=== PATIENT | male | born 1955 | race Caucasian/White ===

== ENCOUNTER 2022-04-24 10:08 | Inpatient (IN) ==
--- NOTE | 2022-04-04 09:36 | PAT Medication Instructions ---
Medication Instructions Date of Service April 04, 2022 Home Medications aspirin 81 mg tablet,delayed release 81 mg PO QAM atorvastatin 80 mg tablet 80 mg PO QPM cholecalciferol (vitamin D3) 125 mcg (5,000 unit) tablet (Vitamin D3) 125 mcg PO QAM clopidogrel 75 mg tablet 75 mg PO QAM dapagliflozin 10 mg tablet (Farxiga) 10 mg PO QAM dulaglutide 1.5 mg/0.5 mL subcutaneous pen injector (Trulicity) 1.5 mg subcut WK duloxetine 60 mg capsule,delayed release 60 mg PO QAM insulin lispro 100 unit/mL subcutaneous pen (Humalog KwikPen (U-100) Insulin) 1 sliding scale dose subcut USEASDIRECTD lactobacillus combination no.4 3 billion cell capsule (Probiotic) 3,000 mmu cells PO QAM metformin 500 mg tablet 500 mg PO BID metoprolol succinate 25 mg tablet,extended release 24 hr 25 mg PO BID multivitamin 1 cap PO QPM omeprazole 20 mg capsule,delayed release 20 mg PO QAM oxycodone-acetaminophen 10 mg-325 mg tablet 1 tab PO Q4H PRN Pain pregabalin 150 mg capsule (Lyrica) 150 mg PO QAM pregabalin 150 mg capsule (Lyrica) 300 mg PO HS sacubitril 49 mg-valsartan 51 mg tablet (Entresto) 1 tab PO BID spironolactone 25 mg tablet 25 mg PO QAM trazodone 100 mg tablet 100 mg PO HS Continue as directed dulaglutide 1.5 mg/0.5 mL subcutaneous pen injector (Trulicity) 1.5 mg subcut WK ASK your prescriber and surgeon aspirin 81 mg tablet,delayed release 81 mg PO QAM clopidogrel 75 mg tablet 75 mg PO QAM STOP 3 days before surgery dapagliflozin 10 mg tablet (Farxiga) 10 mg PO QAM DO NOT take the morning of surgery cholecalciferol (vitamin D3) 125 mcg (5,000 unit) tablet (Vitamin D3) 125 mcg PO QAM insulin lispro 100 unit/mL subcutaneous pen (Humalog KwikPen (U-100) Insulin) 1 sliding scale dose subcut USEASDIRECTD lactobacillus combination no.4 3 billion cell capsule (Probiotic) 3,000 mmu cells PO QAM metformin 500 mg tablet 500 mg PO BID sacubitril 49 mg-valsartan 51 mg tablet (Entresto) 1 tab PO BID (unless blood pressure is significantly uncontrolled) spironolactone 25 mg tablet 25 mg PO QAM Take morning of surgery With a small sip of water, OTHERWISE NOTHING TO EAT OR DRINK AFTER MIDNIGHT: duloxetine 60 mg capsule,delayed release 60 mg PO QAM metoprolol succinate 25 mg tablet,extended release 24 hr 25 mg PO BID omeprazole 20 mg capsule,delayed release 20 mg PO QAM oxycodone-acetaminophen 10 mg-325 mg tablet 1 tab PO Q4H PRN Pain (if needed) pregabalin 150 mg capsule (Lyrica) 150 mg PO QAM Take evening before surgery atorvastatin 80 mg tablet 80 mg PO QPM insulin lispro 100 unit/mL subcutaneous pen (Humalog KwikPen (U-100) Insulin) 1 sliding scale dose subcut USEASDIRECTD metformin 500 mg tablet 500 mg PO BID metoprolol succinate 25 mg tablet,extended release 24 hr 25 mg PO BID multivitamin 1 cap PO QPM oxycodone-acetaminophen 10 mg-325 mg tablet 1 tab PO Q4H PRN Pain (if needed) pregabalin 150 mg capsule (Lyrica) 300 mg PO HS sacubitril 49 mg-valsartan 51 mg tablet (Entresto) 1 tab PO BID trazodone 100 mg tablet 100 mg PO HS Other Notes If you have any questions please call us at [phone] or [phone] or [phone] or [phone]
--- NOTE | 2022-04-10 13:39 | Anesthesiology Consultation ---
Date of Service April 10, 2022 Assessment & Plan (1) Encounter for pre-operative examination: - COVID screening: Per assessment on 04/10: No known COVID-19 positive contacts or current COVID-19 related symptoms. Travel screen negative. Patient vaccinated. At surgeon discretion if preop Covid testing being done. - Check BSG AM DOS - Awaiting upcoming cardiology office visit (Dr. Samuel Garcia/[facility], appt 04/19). - Hyperkalemia: Preop labs done 04/10/22 show elevated potassium at 5.4. Awaiting response from PCP regarding hyperkalemia (Barbra FRANKLIN, [facility]). Chart Review Chart Review: Patient seen in Pre Admission Testing Teaching & Discussion Pre-Anesthesia Teaching/Discussion Notes: Instructed NPO after midnight before surgery,except medications with 15 cc of water. Medication instructions provided according to the PAT guidelines. History Surgery Operation Date: 04/24/22 10:05 Proposed Procedures p L4-S1 Decompression and Fusion, Spinal Cord Monitoring - Yoel Maldonado DO Height/Weight Height: 5 ft 10 in Weight: 117.8 kg Allergies Allergy/AdvReac Type Severity Reaction Status Date / Time epinephrine AdvReac Unknown panic Verified 04/03/22 15:08 attack Medications Home Medications Medication Instructions Recorded Confirmed Last Taken aspirin 81 mg tablet,delayed 81 mg PO QAM 04/03/22 04/03/22 Unknown release atorvastatin 80 mg tablet 80 mg PO QPM 04/03/22 04/03/22 Unknown cholecalciferol (vitamin D3) 125 125 mcg PO QAM 04/03/22 04/03/22 Unknown mcg (5,000 unit) tablet (Vitamin D3) clopidogrel 75 mg tablet 75 mg PO QAM 04/03/22 04/03/22 Unknown dapagliflozin 10 mg tablet 10 mg PO QAM 04/03/22 04/03/22 Unknown (Farxiga) dulaglutide 1.5 mg/0.5 mL 1.5 mg subcut WK 04/03/22 04/03/22 Unknown subcutaneous pen injector (Trulicity) duloxetine 60 mg capsule,delayed 60 mg PO QAM 04/03/22 04/03/22 Unknown release insulin lispro 100 unit/mL 1 sliding scale dose subcut 04/03/22 04/03/22 Unknown subcutaneous pen (Humalog KwikPen USEASDIRECTD (U-100) Insulin) lactobacillus combination no.4 3 3,000 mmu cells PO QAM 04/03/22 04/03/22 Unknown billion cell capsule (Probiotic) metformin 500 mg tablet 500 mg PO BID 04/03/22 04/03/22 Unknown metoprolol succinate 25 mg 25 mg PO BID 04/03/22 04/03/22 Unknown tablet,extended release 24 hr multivitamin 1 cap PO QPM 04/03/22 04/03/22 Unknown omeprazole 20 mg capsule,delayed 20 mg PO QAM 04/03/22 04/03/22 Unknown release oxycodone-acetaminophen 10 mg-325 1 tab PO Q4H PRN Pain 04/03/22 04/03/22 Unknown mg tablet pregabalin 150 mg capsule (Lyrica) 150 mg PO QAM 04/03/22 04/03/22 Unknown pregabalin 150 mg capsule (Lyrica) 300 mg PO HS 04/03/22 04/03/22 Unknown sacubitril 49 mg-valsartan 51 mg 1 tab PO BID 04/03/22 04/03/22 Unknown tablet (Entresto) spironolactone 25 mg tablet 25 mg PO QAM 04/03/22 04/03/22 Unknown trazodone 100 mg tablet 100 mg PO HS 04/03/22 04/03/22 Unknown Past Medical History Medical History Back problem LLE radiculopathy Betancourt's esophagus Noted in remote hx, not noted on follow-up scope per pt CAD (coronary artery disease) Hx CABG (2019), cardiac stents (multiple stents including 2005 and 2019, most recently 2019) Diabetes IDDM High cholesterol History of CHF (congestive heart failure) History of kidney stones HTN (hypertension) Low kidney function Myocardial infarct 2005 Neuropathy Feet Obesity Sleep apnea CPAP (compliant) Exercise / Class Metabolic Activity III < 4 Walking/Shop/Light housework (one FS (no CP, + SOB)) Past Family History Family History Mother Family history of diabetes mellitus Father Family history of diabetes mellitus Past Surgical History Surgical History History of back surgery History of cardiac cath Multiple, total of 4 stents History of colonoscopy History of endoscopy History of heart bypass surgery 2020 Past Anesthesia History No Hx of Anesthesia Complications and No Family Hx of Anesthesia Complications History of PONV No Hx of PONV and Hx of Motion Sickness Social History Smoking Status: Never smoker Do You Dip or Chew Tobacco: No Hx Alcohol Use: No Hx Substance Use: No substance use type: does not use Review of Systems Patient denies chest pain, shortness of breath, fever, chills, cough, wheezing, palpitations. Physical Exam Vital Signs VITALS BP 103/70 P 79 TEMP 97.8 SP02 100%RA RESP 16 PHYSICAL Full cervical extension range of motion. Full TMJ range of motion. TMD 3 finger breaths Mallampati Score 1 Dentition: intact, several caps/crowns Lungs: clear throughout to auscultation Cardiac: regular rate and rhythm, no murmurs noted Spine: normal Carotid arteries: negative bruit Extremities: no edema Short, thick neck Lab Results Anesthesia Preop Results Results Anesthesia Widget: WBC 10.12 K/ul (4.8-10.8) 04/10/22 Hgb 17.1 g/dl (14.0-18.0) 04/10/22 Hct 52.6 % (42.0-52.0) H 04/10/22 Plt 167 K/uL (130-400) 04/10/22 Na 139 mmol/L (136-145) 04/10/22 K 5.4 mmol/L (3.5-5.1) H 04/10/22 Cl 106 mmol/L (98-107) 04/10/22 CO2 30 mmol/L (21-32) 04/10/22 BUN 23 mg/dl (6-23) 04/10/22 Creat 1.50 mg/dl (0.6-1.4) H 04/10/22 Glucose Level 136 mg/dl (70-99(Fasting)) H 04/10/22 PT 10.9 Seconds (9.0-12.0) 04/10/22 PTT 28.4 Seconds (21.0-31.0) 04/10/22 INR 1.0 (0.9-1.1) 04/10/22 HA1c 7.7 % (4.5-5.6) H 04/10/22 Urine Color Yellow 04/10/22 Urine Appearance Clear (Clear) 04/10/22 Urine pH 5.0 (4.5-7.5) 04/10/22 Urine Specific [place] 1.020 (1.000-1.030) 04/10/22 Urine Protein Negative (Negative) 04/10/22 Urine Glucose (UA) 3+ (Negative) H 04/10/22 Urine Ketones Negative (Negative) 04/10/22 Urine Blood Negative (Negative) 04/10/22 Urine Nitrite Negative (Negative) 04/10/22 Urine Bilirubin Negative (Negative) 04/10/22 Urine Urobilinogen Negative (Negative) 04/10/22 Urine Leukocyte Esterase Negative (Negative) 04/10/22 Blood Type A Positive 04/10/22 Antibody Screen NEGATIVE 04/10/22 Testing Electrocardiogram Date: 04/10/22 NSR at 76bpm. LAD. NS IVCD. Chest X-Ray Date: 04/10/22 FINDINGS: The lungs are clear. The cardiac silhouette is borderline enlarged. There are poststernotomy changes. No pleural effusions. No pneumothorax. IMPRESSION: Borderline cardiomegaly. Otherwise, no acute process within the chest. Echocardiogram Date: 09/26/21 Mild anterior septal hypokinesis and overall ejection fraction about 50%. No evidence of mitral valve prolapse. Thickened mitral valve leaflet with trace MR. Trace TR. Mild PI. COVID-19 Risk Screen Screening Information COVID-19 Screen Date: 04/10/22 Exposure 21 Days Family/Household +COVID Last 21 Days: No Exposure 10 Days Any COVID Exposure Last 10 Days: No Symptoms Last 10 Days Experienced COVID Sx Last 10 Days: No + COVID 0-90 Days COVID + in Last 0-90 Days: No
[~2022-04-24 10:08] MED LIST: ACETAMINOPHEN 500 MG TAB PO SCH; CeleBREX 200 MG CAP PO SCH; GABAPENTIN 300 MG CAP PO SCH; LR 15ML/HR IV SCH; ceFAZolin 2000MG 2,000 MG/15 ML SYR IV SCH
--- NOTE | 2022-04-24 13:06 | History & Physical Bridge Note ---
Date of Service April 24, 2022 History & Physical Bridge Note I have examined the patient, reviewed the History & Physical and in the interval since the performance of the History & Physical I have noted the following changes of clinical significance: no changes noted
--- NOTE | 2022-04-24 13:07 | History & Physical Report ---
Date of Service April 24, 2022 Assessment & Plan (1) Neurogenic claudication due to lumbar spinal stenosis: Plan: L4-S1 decompression and fusion History of Present Illness Chief Complaint: Back and leg pain Primary Care Provider: NO PCP This is a 66-year-old male who presents with chronic persistent back and leg pain after failing since course of nonoperative care is here for surgical invention. Allergies Allergy/AdvReac Type Severity Reaction Status Date / Time epinephrine AdvReac Unknown panic Verified 04/24/22 10:32 attack Home Medications Medication Instructions Recorded Confirmed Type aspirin 81 mg tablet,delayed 81 mg PO QAM 04/03/22 04/24/22 History release atorvastatin 80 mg tablet 80 mg PO QPM 04/03/22 04/24/22 History cholecalciferol (vitamin D3) 125 125 mcg PO QAM 04/03/22 04/24/22 History mcg (5,000 unit) tablet (Vitamin D3) clopidogrel 75 mg tablet 75 mg PO QAM 04/03/22 04/24/22 History dapagliflozin 10 mg tablet 10 mg PO QAM 04/03/22 04/24/22 History (Farxiga) dulaglutide 1.5 mg/0.5 mL 1.5 mg subcut WK 04/03/22 04/24/22 History subcutaneous pen injector (Trulicity) duloxetine 60 mg capsule,delayed 60 mg PO QAM 04/03/22 04/24/22 History release insulin lispro 100 unit/mL 1 sliding scale dose subcut 04/03/22 04/24/22 History subcutaneous pen (Humalog KwikPen USEASDIRECTD (U-100) Insulin) lactobacillus combination no.4 3 3,000 mmu cells PO QAM 04/03/22 04/24/22 History billion cell capsule (Probiotic) metformin 500 mg tablet 500 mg PO BID 04/03/22 04/24/22 History metoprolol succinate 25 mg 25 mg PO BID 04/03/22 04/24/22 History tablet,extended release 24 hr multivitamin 1 cap PO QPM 04/03/22 04/24/22 History omeprazole 20 mg capsule,delayed 20 mg PO QAM 04/03/22 04/24/22 History release oxycodone-acetaminophen 10 mg-325 1 tab PO Q4H PRN Pain 04/03/22 04/24/22 History mg tablet pregabalin 150 mg capsule (Lyrica) 150 mg PO QAM 04/03/22 04/24/22 History pregabalin 150 mg capsule (Lyrica) 300 mg PO HS 04/03/22 04/24/22 History sacubitril 49 mg-valsartan 51 mg 1 tab PO BID 04/03/22 04/24/22 History tablet (Entresto) spironolactone 25 mg tablet 25 mg PO QAM 04/03/22 04/24/22 History trazodone 100 mg tablet 100 mg PO HS 04/03/22 04/24/22 History Past Med/Surg History Medical History Back problem LLE radiculopathy Betancourt's esophagus Noted in remote hx, not noted on follow-up scope per pt CAD (coronary artery disease) Hx CABG (2019), cardiac stents (multiple stents including 2005 and 2019, most recently 2018) Diabetes IDDM High cholesterol History of CHF (congestive heart failure) History of kidney stones HTN (hypertension) Low kidney function Myocardial infarct 2004 Neuropathy Feet Obesity Sleep apnea CPAP (compliant) Surgical History History of back surgery History of cardiac cath Multiple, total of 4 stents History of colonoscopy History of endoscopy History of heart bypass surgery 2019 Family History Mother Family history of diabetes mellitus Father Family history of diabetes mellitus Social History Smoking Status: Never smoker Do You Dip or Chew Tobacco: No; Hx Alcohol Use: No Hx Substance Use: No Preferred Language: Azeri Communication Ability: Effective Visitor Services Representative Required: No Beliefs That Will Affect Care: None Current Living Situation: Spouse Other Information That Helps Us Care for You: No Feels Safe at Home: Yes Assistive Devices: CPAP Physical Exam Physical Exam: Patient is alert and oriented Heart regular rhythm Lungs clear Results & Data Results & Data ([facility]) Vital Signs (Past 12 Hours) Vital Signs Temp Pulse Resp BP Pulse Ox O2 Del Method 04/24/22 11:02 36.9 C 73 20 111/74 98 Room Air
[2022-04-24] MEDS ORDERED: BUPIVACAINE/EPINEPHRINE 0.25% 1:200,000 30 ML VIAL ONE (13:40)
[2022-04-24] MEDS ORDERED: ceFAZolin 330 MG/ML 1 GM VIAL ONE (13:41)
[2022-04-24] MEDS ORDERED: fentaNYL citrate 100 MCG/2 ML VIAL ONE (13:42)
[2022-04-24] MEDS ORDERED: MIDAZOLAM HCL 1 MG/ML 2ML VIAL ONE (13:45)
[2022-04-24] MEDS ORDERED: LIDOCAINE 2% MPF LOCAL 5 ML VIAL INFIL ONE (14:24)
[2022-04-24] MEDS ORDERED: PROPOFOL IV EMULSION 10 MG/ML 20 ML VIAL IV ONE (14:24)
[2022-04-24] MEDS ORDERED: DEXAMETHASONE SOD INJ 4 MG/ML VIAL ONE (14:25)
[2022-04-24] MEDS ORDERED: ONDANSETRON INJ 2 MG/ML 2 ML VIAL ONE (14:25)
[2022-04-24] MEDS ORDERED: ROCURONIUM BROMIDE 10 MG/ML 5 ML VIAL IV ONE ×2 (14:25→15:13)
[2022-04-24] MEDS ORDERED: FLOSEAL HEMOSTATIC MATRIX 10ML TOP ONE (14:39)
[2022-04-24] MEDS ORDERED: ePHEDrine sulfate 50 MG/ML SYR ONE (14:42)
[2022-04-24] MEDS ORDERED: PHENYLEPHRINE HCL 10 MG/ML VIAL ONE (15:03)
[2022-04-24] MEDS ORDERED: HYDROmorphone INJ 2 MG/ML SYR/VIAL ONE (15:16)
--- NOTE | 2022-04-24 15:56 | Operative Report ---
Post Operative Report Pre & Post Diagnosis Operation Date: 04/24/22 12:15 Pre-Op Diagnosis: Neurogenic claudication due to lumbar spinal stenosis Post-Op Diagnosis: Neurogenic claudication due to lumbar spinal stenosis I identified the patient and participated in the time-out.: Yes Procedure Operation Date: 04/24/22 12:15 Actual Procedures #1 revision decompression with bilateral medial facetectomies and foraminotomies L4-5 and L5-S1. #2 posterior spinal fusion L4-L5 L5-S1. #3 placed posterior instrumentation L4-L5 L5-S1. #4 interbody fusion L4-L5 L5-S1. #5 placement of Spira 10 x 26 mm cage at L4-5 and L5-S1. #6 placement locally harvested morselized autograft in the posterior gutters. #7 placement of I factor combined with the test interbody space and posterior gutters. Surgeon Yoel Maldonado, DO Insulation Cupola Operator Aziza Womack Estimated Blood Loss 400 Findings See Below The patient is 5 foot 10 weighing over 116 kg with a BMI in excess of 36. The patient's body habitus did contribute to significant technical difficulty required deepest retractors and longer instruments in order to perform his procedure. This had at least 50% increased operative time. Specimens None Indications This is a 66-year-old male who presents above-mentioned diagnosis of the failing course of nonoperative care is here for surgical invention. Description of Procedure Patient was met with identified informed consent obtained. Patient was then taken to the operative suite underwent a patient placed in a prone position the Jex table top Ismael frame. All bony promises well-padded eyes inspected to ensure no external pressure placed upon the. This point the lumbar spine was prepped and draped in normal sterile fashion. Sharp dissection with the assistance of Bovie cautery was performed down to and exposing the remaining lamina and transverse processes of L4-L5 and sacral ala bilaterally. From a caudal cephalad fashion, revision complete laminectomy of L5 L4 was performed including bilateral medial facetectomies and foraminotomies addressing severe spinal stenosis. Pedicle screws were then placed in L4-L5 and S1 levels bilaterally with assistance of fluoroscopy and the properly sized tay placed. By way of entrance foraminal approach on the left complete discectomy of L5-S1 was performed endplates curetted to subcortical bleeding bone and a 10 x 26 mm Spira cage with I factor tapped in position. Then proceeded to L4-L5 and again by way of a transforaminal approach on the left complete discectomy performed endplates curetted to subcortically bone and again a 10 x 26 mm spiral cage with I factor tapped in position. The rods were then locked into final position bilaterally. The transverse processes of L4-L5 and sacral ala burred to subcortically bone. I factor bone of the test and locally harvested morselized autograft was placed in the posterior gutters. 15 round TRAVIS drain inserted. The incision was then closed with 1 Vicryl the fascia 2-0 Vicryl subcutaneously and 4 Monocryl for final skin closure. Steri-Strip sterile dressings placed. Patient waken taken to PACU in stable condition. Please note spinal cord monitoring was utilized at the procedure no changes noted. Lastly Aziza Womack was present at the entire procedure involved the patient positioning complex twisting of the surgery and final skin closure. I attest to the content of the Intraoperative Record and any orders documented therein. Any exceptions are noted below.
[2022-04-24] MEDS ORDERED: SUGAMMADEX SODIUM 200 MG/2 ML VIAL IV ONE (16:15)
--- NOTE | 2022-04-24 16:21 | Fluoroscopy Report ---
FL lumbar spine 2-3V CLINICAL HISTORY: L4-S1 decompression and fusion COMPARISON STUDY: None. FLUOROSCOPY TIME: 26 seconds. EXPOSURE DOSE: 22.06 mGy FLUOROSCOPIC IMAGES: 2 FINDINGS: Fluoroscopy was provided during L4-L5 and L5-S1 discectomies with interbody spacer placemen t. The L5-S1 spacer is within the anterior aspect of the disc space. Posterior decompression is noted with bilateral pedicle screws at the L4, L5 and S1 levels with interconnecting rods. IMPRESSION: Fluoroscopy provided during L4-S1 discectomies, posterior decompression and bilateral pe dicle screw fusion. ACT 112: Negative or not required by law. Electronically signed by: Sanford Gaytan M.D. 04/24/2022 4:19 PM
[2022-04-24] MEDS ORDERED: ePHEDrine sulfate 50 MG/ML AMP IV PRN (16:34)
[2022-04-24] MEDS ORDERED: ATROPINE SULFATE 0.1 MG/ML 10ML SYR IV PRN (16:34)
[2022-04-24] MEDS ORDERED: fentaNYL citrate 100 MCG/2 ML VIAL IV PRN (16:34)
[2022-04-24] MEDS ORDERED: HYDROmorphone INJ 2 MG/ML SYR/VIAL IV PRN (16:34)
[2022-04-24] MEDS ORDERED: ONDANSETRON INJ 2 MG/ML 2 ML VIAL IV PRN ×2 (16:34→17:48)
--- NOTE | 2022-04-24 17:32 | Anesthesiology Progress Note ---
Date of Service April 24, 2022 Anesthesia Post Procedure Vital Signs Vital Signs: Temp Pulse Pulse Resp BP Pulse Ox O2 Del Method 04/24/22 17:15 65 12 103/56 L 93 Nasal Cannula 04/24/22 17:00 36.3 C L 71 18 101/63 94 Nasal Cannula 04/24/22 16:50 71 12 99/60 L 96 Nasal Cannula 04/24/22 16:40 78 12 100/64 97 Oxymask 04/24/22 16:30 76 12 103/61 95 Oxymask 04/24/22 16:21 36.9 C 86 12 139/82 93 Oxymask 04/24/22 11:02 36.9 C 73 20 111/74 98 Room Air O2 Flow Rate 04/24/22 17:15 4 04/24/22 17:00 4 04/24/22 16:50 4 04/24/22 16:40 8 04/24/22 16:30 8 04/24/22 16:21 8 04/24/22 11:02 Pain Intensity Back: Pain Intensity: 4 Transfer of Care Handoff Completed per policy Notes Mental Status: alert / awake / arousable and participated in evaluation Patient Amnestic to Procedure: Yes Nausea / Vomiting: adequately controlled Pain: adequately controlled Airway Patency, RR, SpO2: stable & adequate BP & HR: stable & adequate Hydration State: stable & adequate Anesthetic Complications: no major complications apparent and Pt Satisfied with anesthetic care
[2022-04-24] MEDS ORDERED: DO NOT ADMINISTER FLU VACCINE PRN (17:48)
[2022-04-24] MEDS ORDERED: NALOXONE HCL 0.4 MG/1 ML VIAL/CARP IV PRN (17:48)
[2022-04-24] MEDS ORDERED: hydrOXYzine HCl 25 MG TAB PO PRN (17:48)
[2022-04-24] MEDS ORDERED: HYDROmorphone INJ 0.5 MG/0.5 ML SYR IV PRN (17:48)
[2022-04-24] MEDS ORDERED: diphenhydrAMINE Capsule 25 MG CAP PO PRN (17:48)
[2022-04-24] MEDS ORDERED: traMADol HCL 50 MG TABLET PO PRN (17:48)
[2022-04-24] MEDS ORDERED: LORazepam 0.5 MG TAB PO PRN (17:48)
[2022-04-24] MEDS ORDERED: LORazepam 2 MG/1 ML VIAL IV PRN (17:48)
[2022-04-24] MEDS ORDERED: ALUMINUM/MAGNESIUM SUSP 30 ML UDC PO PRN (17:48)
[2022-04-24] MEDS ORDERED: FAMOTIDINE 20 MG TAB PO PRN (17:48)
[2022-04-24] MEDS ORDERED: ONDANSETRON 4 MG OD TAB PO PRN (17:48)
[2022-04-24] MEDS ORDERED: MAGNESIUM HYDROXIDE SUSP 30 ML UDC PO PRN (17:48)
[2022-04-24] MEDS ORDERED: PROMETHAZINE HCL 12.5 MG in SODIUM CHLORIDE 0.9% 50 ML IV PRN (17:48)
[2022-04-24] MEDS ORDERED: DO NOT ADMINISTER PNEUMOCOCCAL VACCINE PRN (17:48)
[2022-04-24] MEDS ORDERED: METOCLOPRAMIDE HCL INJ 5 MG/ML 2 ML VIAL IV PRN (17:48)
[2022-04-24] MEDS ORDERED: bisacodyL 10 MG SUPP PR PRN (17:48)
[2022-04-24] MEDS ORDERED: ACETAMINOPHEN 500 MG TAB PO PRN (17:48)
[2022-04-24] MEDS ORDERED: PHARMACY GLYCEMIC MGMT CONSULT PRN (17:48)
[2022-04-24] MEDS ORDERED: ACETAMINOPHEN 1,000 MG/100 ML VIAL IV PRN (17:48)
[2022-04-24] MEDS ORDERED: SOD PHOSPHATE/SOD BIPHOSPHATE ENEMA 132 ML BTL PR PRN (17:48)
[2022-04-24] MEDS: oxyCODONE HCL IR 5 MG TAB (IMMEDIATE RELEASE) PO PRN (19:09)
[2022-04-24] MEDS ORDERED: GLUCAGON FOR INJ 1 MG VIAL SQ PRN (19:24)
[2022-04-24] MEDS ORDERED: GLUCOSE 10 TAB/TUBE PO PRN (19:24)
[2022-04-24] MEDS ORDERED: DEXTROSE 50% 50 ML SYRINGE IV PRN (19:24)
[2022-04-24] MEDS ORDERED: GLUCOSE 40% GEL 15 GM TUBE PO PRN (19:24)
[2022-04-24] MEDS ORDERED: CARBOHYDRATES FOR HYPOGLYCEMIA PO PRN (19:24)
--- NOTE | 2022-04-24 19:26 | Hospitalist Consultation ---
Date of Consultation April 24, 2022 Assessment & Plan (1) Neurogenic claudication due to lumbar spinal stenosis: - Pain management, bowel regimen and DVT ppx per the primary team - PT/OT consults, pt is planning on outpatient therapy - Follow am CBC to monitor for acute blood loss, hgb was 17 preoperatively, trend with a.m. labs (2) Diabetes: -History of such, will add ISS with Accu-Cheks ACHS -Check A1c was 7.7 in March 2022 -Diet and exercise to be encouraged prior to hospital discharge -Glycemic pharmacy has been consulted, currently holding metformin, dapagliflozin, Trulicity once per week (3) CAD (coronary artery disease): (4) HTN (hypertension): (5) History of CHF (congestive heart failure): -We will hold Entresto tonight and plan to start tomorrow a.m., currently soft blood pressure of 94/59 while at bedside, patient denying any chest pain, shortness of breath, lightheadedness or dizziness. -Continue metoprolol, spironolactone (6) Obesity: -BMI of 36.9, encourage diet and exercise as above (7) Sleep apnea: -Wears CPAP at bedtime, will order that he is he allowed to use his own machine here, patient's has brought it with her from home for him (8) Neuropathy: -Bilateral polyneuropathy present, patient reports his legs feel similar to prior to surgery, is able to wiggle his toes and bend his knees without any difficulty, no gross deficits -Continue Lyrica DVT PPx: - teds, scds CODE: Full code Dispo: From home, likely to remain in the hospital x 1-2 days Thank you for involving us in the care of Mr. Rivera. If you have any questions or concerns please do not hesitate to call. At this time medicine will follow along. A total of 35 minutes were spent with greater than 50% of that time face to face with the patient, personally reviewing all current laboratories, imaging studies, past medication reconciliation, outpatient chart review, and discussion with specialists to collaborate care for the patient with attending. Please see attending documentation for corrections and/or additions. Supervising Physician Co-Signing Physician Notes Patient seen and examined Findings and plans as detailed by Nicolasa Filipowicz PA-C BP currently running low. Hold off entresto tonight and resume in AM Pain control per Primary surgical team Get CBC and BMP in AM History of Present Illness Reason for Consultation: Medical management Requesting Physician: Dr. Maldonado Attending Physician: Yoel Maldonado, DO History of Present Illness This is a 66 yo M with DM II, CAD, chronic diastolic CHF, HTN, HLD, CKD, diabetic neuropathy, anxiety, depression, who presented for elective lumbar decompression fusion by Dr. Maldonado today on 04/24/22. Patient reports that he is doing fairly well, reports his pain is currently 6-7, but nurse has just given him a oxycodone tablet for pain. His is present with him at bedside. He reports tolerating clear liquid diet without any difficulty, advancing diet to regular diabetic/HH diet. Last bowel movement was this morning. He denies any other acute complaints. He is able to wiggle his t oes and bend his knees without difficulty and denies any worsening numbness, but reports chronic polyneuropathy in both feet for years. The patient is anticipating neurostimulator later in the course of his back treatment. He is also anticipating possibly going home in the next 24 hours however is agreeable to 2 night stay if necessary. Allergies Allergy/AdvReac Type Severity Reaction Status Date / Time epinephrine AdvReac Unknown panic Verified 04/24/22 10:32 attack Home Medications Medication Instructions Recorded Confirmed Type aspirin 81 mg tablet,delayed 81 mg PO QAM 04/03/22 04/24/22 History release atorvastatin 80 mg tablet 80 mg PO QPM 04/03/22 04/24/22 History cholecalciferol (vitamin D3) 125 125 mcg PO QAM 04/03/22 04/24/22 History mcg (5,000 unit) tablet (Vitamin D3) clopidogrel 75 mg tablet 75 mg PO QAM 04/03/22 04/24/22 History dapagliflozin 10 mg tablet 10 mg PO QAM 04/03/22 04/24/22 History (Farxiga) dulaglutide 1.5 mg/0.5 mL 1.5 mg subcut WK 04/03/22 04/24/22 [facility] duloxetine 60 mg capsule,delayed 60 mg PO QAM 04/03/22 04/24/22 History release insulin lispro 100 unit/mL 1 sliding scale dose subcut 04/03/22 04/24/22 History subcutaneous pen (Humalog KwikPen USEASDIRECTD (U-100) Insulin) lactobacillus combination no.4 3 3,000 mmu cells PO QAM 04/03/22 04/24/22 History billion cell capsule (Probiotic) metformin 500 mg tablet 500 mg PO BID 04/03/22 04/24/22 History metoprolol succinate 25 mg 25 mg PO BID 04/03/22 04/24/22 History tablet,extended release 24 hr multivitamin 1 cap PO QPM 04/03/22 04/24/22 History omeprazole 20 mg capsule,delayed 20 mg PO QAM 04/03/22 04/24/22 History release oxycodone-acetaminophen 10 mg-325 1 tab PO Q4H PRN Pain 04/03/22 04/24/22 History mg tablet pregabalin 150 mg capsule (Lyrica) 150 mg PO QAM 04/03/22 04/24/22 History pregabalin 150 mg capsule (Lyrica) 300 mg PO HS 04/03/22 04/24/22 History sacubitril 49 mg-valsartan 51 mg 1 tab PO BID 04/03/22 04/24/22 History tablet (Entresto) spironolactone 25 mg tablet 25 mg PO QAM 04/03/22 04/24/22 History trazodone 100 mg tablet 100 mg PO HS 04/03/22 04/24/22 History Patient History Medical History (Updated 04/24/22 @ 19:23 by Nicolasa Deutsch PA-C) Back problem LLE radiculopathy Betancourt's esophagus Noted in remote hx, not noted on follow-up scope per pt CAD (coronary artery disease) Hx CABG (2019), cardiac stents (multiple stents including 2004 and 2019, most recently 2019) Diabetes IDDM High cholesterol History of CHF (congestive heart failure) History of kidney stones HTN (hypertension) Low kidney function Myocardial infarct 2004 Neuropathy Feet Obesity Sleep apnea CPAP (compliant) Surgical History History of back surgery History of cardiac cath Multiple, total of 4 stents History of colonoscopy History of endoscopy History of heart bypass surgery 2019 Family History Mother Family history of diabetes mellitus Father Family history of diabetes mellitus Social History Smoking Status: Never smoker Do You Dip or Chew Tobacco: No; Hx Alcohol Use: No Hx Substance Use: No Preferred Language: Croatian Communication Ability: Effective [place] Hand Required: No Beliefs That Will Affect Care: None Current Living Situation: Spouse Other Information That Helps Us Care for You: No Feels Safe at Home: Yes Assistive Devices: CPAP Review of Systems Review of Systems: Constitutional: No fever, sweats or chills Eyes: No diplopia, no worsening or blurred vision ENT: normal hearing, no trouble swallowing Respiratory: No cough, sputum, dyspnea at rest or on exertion Cardiovascular: No chest pain, tightness or palpitations Abdomen: No pain, nausea, vomiting, diarrhea or constipation Back: Pain as described per HPI Musculoskeletal: No joint pain, calf pain, swelling Neurologic: No weakness, + chronic polyneuropathy of feet bilaterally, no new numbness/tingling, or balance problems Psychiatric: No anxiety or depression Skin: No rash or itch Physical Exam Physical Exam: General: awake, alert, no apparent distress, morbidly obese with BMI 36.9 Head: Normocephalic, atraumatic ENT: PERRL, EOMI, no pharyngeal exudate, mucous membranes moist Chest: Clear to auscultation, on room air, no adventitious breath sounds Cardiac: Regular rate and rhythm, no murmur, no JVD, normal peripheral pulses, good capillary refill Abdominal: NABS x 4 quadrants, obese abdomen, soft, nondistended, nontender to palpation, no rebound or guarding Extremities: Normal inspection, no peripheral edema or erythema, calfs nontender to palpation Back: Patient is lying flat so dressing was unable to be examined, TRAVIS drain is present draining bloody serosanguineous fluid Psych: Normal mood and affect Neuro: AAO x 3, strength intact bilaterally and rated 5/5, no motor deficits, speech is clear, no peripheral sensory deficits Results & Data Results & Data ([facility]) Vital Signs (Past 12 Hours) Vital Signs Temp Pulse Pulse Resp BP BP Pulse Ox 04/24/22 19:04 36.2 C L 72 18 93/59 L 96 04/24/22 18:11 36.4 C L 63 18 96/57 L 94 04/24/22 17:35 04/24/22 17:35 37.2 C 72 16 95/58 L 04/24/22 17:15 65 12 103/56 L 93 04/24/22 17:00 36.3 C L 71 18 101/63 94 04/24/22 16:50 71 12 99/60 L 96 04/24/22 16:40 78 12 100/64 97 04/24/22 16:30 76 12 103/61 95 04/24/22 16:21 36.9 C 86 12 139/82 93 04/24/22 11:02 36.9 C 73 20 111/74 98 O2 Del Method O2 Flow Rate 04/24/22 19:04 Nasal Cannula 4 04/24/22 18:11 Nasal Cannula 4 04/24/22 17:35 Nasal Cannula 4 04/24/22 17:35 Nasal Cannula 4 04/24/22 17:15 Nasal Cannula 4 04/24/22 17:00 Nasal Cannula 4 04/24/22 16:50 Nasal Cannula 4 04/24/22 16:40 Oxymask 8 04/24/22 16:30 Oxymask 8 04/24/22 16:21 Oxymask 8 04/24/22 11:02 Room Air
[2022-04-24] MEDS: SODIUM CHLORIDE 0.9% 1000ML 1,000 ML IV SCH (19:29)
[2022-04-24] MEDS: traZODone HCL 100 MG TAB PO SCH (20:41)
[2022-04-24] MEDS: MULTIVITAMIN TAB PO SCH (20:41)
[2022-04-24] MEDS: PREGABALIN 150 MG CAP PO SCH (20:41)
[2022-04-24] MEDS: ATORVASTATIN 40 MG TAB PO SCH (20:41)
[2022-04-24] MEDS: DOCUSATE SODIUM/SENNA 50/8.6MG TAB PO SCH (20:42)
[2022-04-24] MEDS: METOPROLOL SUCC 25MG EXT REL TAB PO SCH (20:42)
[2022-04-24] MEDS: INSULIN ASPART PER UNIT SC SCH (20:42)
[2022-04-24] MEDS ORDERED: VALSARTAN/SACUBITRIL 51/49 MG TAB PO SCH (21:00)
[2022-04-24] MEDS ORDERED: LANTUS PER UNIT CHARGE SQ ONE (21:15)
[2022-04-25] MEDS: ceFAZolin 2000MG 2,000 MG/15 ML SYR IV SCH ×2 (00:01→08:42)
[2022-04-25] MEDS: INSULIN ASPART PER UNIT SC SCH ×6 (00:04→20:54)
[2022-04-25] MEDS: oxyCODONE HCL IR 5 MG TAB (IMMEDIATE RELEASE) PO PRN ×4 (00:49→18:21)
[2022-04-25] MEDS: SODIUM CHLORIDE 0.9% 1000ML 1,000 ML IV SCH ×3 (02:10→14:19)
[2022-04-25] MEDS: POLYETHYLENE (MIRALAX) 17 GM PACK PO SCH ×4 (05:47→23:31)
[2022-04-25 08:08] LABS: Basophils # (auto) 0.02 K/uL (0-0.2); Basophils % (auto) 0.2 %; Hematocrit (blood only) 41.9 % (42.0-52.0); Hemoglobin 13.7 g/dl (14.0-18.0); Immature Granulocytes # (auto) 0.06 K/uL (0.01-0.20); Immature Granulocytes % (auto) 0.5 %; Lymphocytes % (auto) 11.9 %; Mean Corpuscular Hemoglobin 29.5 pg (25.0-34.0); Mean Corpuscular Hgb Conc 32.7 g/dL (32.0-36.0); Mean Corpuscular Volume 90.3 fL (80.0-100.0); Mean Platelet Volume 9.7 fL (9.4-12.4); Monocytes # (auto) 0.73 K/uL (0.11-0.59); Monocytes % (auto) 5.8 %; Neutrophils % (auto) 81.6 %; Platelet Count 145 K/uL (130-400); RDW Coefficient of Variation 14.2 % (11.5-14.5); RDW Standard Deviation 46.8 fL (36.4-46.3); Red Blood Count 4.64 M/uL (4.70-6.10); White Blood Count 12.61 K/ul (4.8-10.8)
[2022-04-25 08:19] LABS: Calcium 8.1 mg/dl (8.5-10.1); Creatinine Clr Calc Pharmacy 59.6 ml/min; Est GFR (African American) 52.9 ml/min; Est GFR (Non-African American) 45.6 ml/min; Potassium 4.7 mmol/L (3.5-5.1)
--- NOTE | 2022-04-25 08:40 | Orthopedic Progress Note ---
Date of Service April 25, 2022 Assessment & Plan (1) Neurogenic claudication due to lumbar spinal stenosis: Plan: At this time initiate physical therapy monitor his TRAVIS operatively discharge in the next few days. Admission and Anticipated Discharge Date Admission Date: April 24, 2022 Subjective Back pain is controlled leg pain improved Physical Exam Physical Exam: Patient is currently in bed. He is comfortable. Is good strength testing. Results & Data ([facility]) Vital Signs (Past 12 Hours) Vital Signs Temp Pulse Resp BP Pulse Ox O2 Del Method O2 Flow Rate 04/25/22 07:04 36.7 C 75 18 110/67 96 Room Air 04/25/22 05:51 18 101/66 93 Room Air 04/25/22 04:06 36.2 C L 67 18 124/69 96 CPAP 04/25/22 00:51 70 18 99/64 L 94 Room Air 04/25/22 00:09 94 CPAP 04/25/22 00:05 36.7 C 75 18 95/58 L 91 Room Air 04/24/22 21:04 36.5 C 89 18 94/60 L 96 Nasal Cannula 4
[2022-04-25] MEDS: dexAMETHasone 6 MG in SYRINGE 0 ML IV SCH (08:42)
[2022-04-25] MEDS ORDERED: SPIRONOLACTONE 25 MG TAB PO SCH (09:00)
[2022-04-25] MEDS ORDERED: LANTUS PER UNIT CHARGE SQ SCH (09:00)
[2022-04-25] MEDS: LANTUS PER UNIT CHARGE SQ SCH (09:35)
[2022-04-25] MEDS: VALSARTAN/SACUBITRIL 51/49 MG TAB PO SCH ×2 (10:47→20:53)
[2022-04-25] MEDS: DULoxetine HCL 60 MG CAP PO SCH (10:47)
[2022-04-25] MEDS: PANTOprazole 40 MG TAB PO SCH (10:48)
[2022-04-25] MEDS: METOPROLOL SUCC 25MG EXT REL TAB PO SCH ×2 (10:48→20:55)
[2022-04-25] MEDS: ASPIRIN 81 MG ECTAB PO SCH (10:48)
[2022-04-25] MEDS: ADVANCED PROBIOTIC 1250 MG CAPSULE PO SCH (10:49)
[2022-04-25] MEDS: CHOLECALCIFEROL 5,000 UNITS 125 MCG TAB PO SCH (10:50)
[2022-04-25] MEDS: PREGABALIN 150 MG CAP PO SCH ×2 (10:53→20:52)
[2022-04-25] MEDS: HYDROmorphone INJ 1 MG/ML SYRINGE IV PRN ×3 (11:43→20:52)
--- NOTE | 2022-04-25 12:49 | Pharmacy Report ---
Pharmacy Glycemic Short Note 2 - Date of Service April 25, 2022 - Glycemic Short BSG Results (Last 24 hours): 04/24/22 04/24/22 04/24/22 16:25 18:05 20:32 Glucose POC Glucose 164 H 215 H 259 H 04/24/22 04/25/22 04/25/22 23:59 04:04 07:08 Glucose 138 H POC Glucose 176 H 108 H 04/25/22 04/25/22 08:26 12:21 Glucose POC Glucose 118 H 210 H OUTPATIENT ANTIDIABETIC REGIMEN: * Farxiga 10 mg PO daily * Trulicity 1.5 mg SQ weekly * metformin 500 mg BID * Lispro sliding scale * HbA1C = 7.7% (04/10/22) ASSESSMENT: * Mr Rivera is a 66 y/o M with a PMH of T2DM who presents for spinal surgery. Patient received 4 mg of IV dexamethasone in surgery yesterday. He is now started on IV dexamethasone 8 mg daily x 3 days. * BSGs were elevated yesterday after surgery- 215 then 259 mg/dL. Patient received 15 units of Lantus and 5 units of Novolog. * Fasting BSG was 118 mg/dL. * Will start with Lantus 30 units daily (full weight-based stress of 2 dosing). This should cover basal needs as well as steroid hyperglycemia. It may be necessary to switch to Lantus + NPH for steroid coverage based upon fasting tomorrow. * Will tighten CR due to steroid hyperglycemia. PLAN FOR INPATIENT GLYCEMIC CONTROL: * Hold outpatient oral diabetes medications * Basal insulin * Lantus 30 units SQ daily * Bolus insulin * NovoLog per scale ACHS or Q6hrs while NPO * Goal Range: Low 110 mg/dL - High 140 mg/dL * Correction Factor: 15 mg/dL/unit * Nutritional / Prandial insulin per carb ratio of 1 unit per 5 grams CHO consumed
--- NOTE | 2022-04-25 13:51 | Hospitalist Progress Note ---
Date of Service April 25, 2022 Assessment & Plan (1) Neurogenic claudication due to lumbar spinal stenosis: Plan: POD#1 L4-S1 decompression and fusion by Dr. Maldonado Activity and wound care orders as per ortho Pain control with bowel regimen PT/OT Monitor H/H for acute blood loss anemia and transfuse blood products PRN EBL 400cc, TRAVIS output 540 cc Acute blood loss anemia Preop Hgb 17.1 --> 13.7 No indication for transfusion at this time (2) Diabetes: Plan: Hgb A1c 7.7 03/2022 Hold oral agents and utilize Lantus and NovoLog per protocol while hospitalized Glycemic pharmacy consulted by primary service (3) CAD (coronary artery disease): Plan: History of multiple stents and CABG in 2019 Appears stable, no reports of chest pain Continue ASA, statin, beta-verena. Resume clopidogrel at the discretion of spine Ortho. (4) History of CHF (congestive heart failure): Plan: Entresto held last evening due to borderline low BP, resumed this a.m. Volume previously managed with spironolactone however patient reports this was placed on hold about 1 week ago due to hyperkalemia K+ 4.7 Maintain follow-up with outpatient medical technologist generalist (5) Obesity: Plan: BMI of 36.9, encourage diet and exercise (6) Sleep apnea: Plan: Home CPAP (7) Neuropathy: Plan: Continue Lyrica DVT PROPHYLAXIS TEDs/SCDs as per spine Ortho Thank you for this consultation. We will follow the patient with you during their hospital stay. You can reach a member of the [facility] Hospitalist Team 02/10 via the [facility] Hospitalist role in [place] Text. Admission and Anticipated Discharge Date Admission Date: April 24, 2022 Supervising Physician Co-Signing Physician Notes Patient is seen and examined at bedside. Back pain at surgical site is controlled. Had physical therapy earlier today. No flatus or bowel movement today. Denies any chest pain, shortness of breath, dizziness, nausea, abdominal pain. Family at bedside. On exam patient is obese, no apparent distress, normocephalic atraumatic, EOMI, normal breath sounds, clear to auscultation, S1- S2, no murmur, no pedal edema, abdomen soft, nontender, bowel sounds present,+ surgical site+ in dressing, + drain, alert, awake, oriented, grossly no focal deficits. Patient is being managed for neurogenic claudication due to lumbar spinal stenosis S/P surgery by Dr. Maldonado. Acute postoperative blood loss anemia. No indication for transfusion currently. Continue incentive spirometry. Bowel regimen to prevent constipation. Continue wound care, PT OT, pain control. Agree with utilizing insulin while hospitalized for diabetes management. Resume Plavix as able. I personally reviewed the record. Patient is interviewed and examined at bedside. Patient's care is coordinated with Tara Tariq MOBILE HOME TECHNICIAN. Please refer to the documentation above for details of patient's presentation and for discussion of other issues. Subjective Follow-up medical management, s/p L4-S1 decompression and fusion. Patient seen and examined. Reports pain is well controlled. Denies numbness and tingling to lower extremities. No chest pain or shortness of breath. Denies abdominal pain and nausea. Awan catheter remains in place. + flatus, no BM Review of Systems Review of Systems: ROS per HPI, all other systems reviewed and negative Physical Exam Constitutional: WD/WN, vitals as above Respiratory: normal respiratory effort, lungs clear to auscultation Cardiovascular: Rate/Rhythm: regular rate and regular rhythm Vessels: normal peripheral pulses Extremities: no edema Gastrointestinal (Abdomen): Percussion/Palpation: abdomen soft; abdomen nontender Musculoskeletal: S/p back surgery, pedal pushes and pulls strong bilaterally, drain in place draining bloody drainage Skin: no rashes, warm and dry Neurologic: no focal motor deficits Psychiatric: A+Ox3, euthymic affect Results & Data Results & Data ([facility]) Vital Signs (Past 12 Hours) Vital Signs Temp Pulse Resp BP BP Pulse Ox O2 Del Method 04/25/22 11:58 36.6 C 78 18 109/65 93 Room Air 04/25/22 07:04 36.7 C 75 18 110/67 96 Room Air 04/25/22 05:51 18 101/66 93 Room Air 04/25/22 04:06 36.2 C L 67 18 124/69 96 CPAP Laboratory Results Short CBC 04/25/22 Range/Units 07:08 WBC 12.61 H (4.8-10.8) K/ul Hgb 13.7 L (14.0-18.0) g/dl Hct 41.9 L (42.0-52.0) % Plt Count 145 (130-400) K/uL BMP 04/25/22 07:08 Sodium 139 Potassium 4.7 Chloride 106 Carbon Dioxide 30 BUN 25 H Creatinine 1.56 H Glucose 138 H Calcium 8.1 L
[2022-04-25] MEDS: MULTIVITAMIN TAB PO SCH (20:53)
[2022-04-25] MEDS: DOCUSATE SODIUM/SENNA 50/8.6MG TAB PO SCH (20:53)
[2022-04-25] MEDS: ATORVASTATIN 40 MG TAB PO SCH (20:54)
[2022-04-25] MEDS: traZODone HCL 100 MG TAB PO SCH (20:54)
[2022-04-26] MEDS: POLYETHYLENE (MIRALAX) 17 GM PACK PO SCH ×4 (05:19→23:05)
[2022-04-26 08:00] LABS: Hematocrit (blood only) 38.4 % (42.0-52.0); Hemoglobin 12.4 g/dl (14.0-18.0); Mean Corpuscular Hemoglobin 29.5 pg (25.0-34.0); Mean Corpuscular Hgb Conc 32.3 g/dL (32.0-36.0); Mean Corpuscular Volume 91.4 fL (80.0-100.0); Mean Platelet Volume 9.7 fL (9.4-12.4); Platelet Count 141 K/uL (130-400); RDW Coefficient of Variation 14.5 % (11.5-14.5); RDW Standard Deviation 48.3 fL (36.4-46.3)
--- NOTE | 2022-04-26 08:16 | Orthopedic Progress Note ---
Date of Service April 26, 2022 Assessment & Plan (1) Neurogenic claudication due to lumbar spinal stenosis: Plan: Jose is postoperative day 2 status post TLIF L4-5, L5-S1. He is doing well. We will continue with pain control. Continue with DVT prophylaxis in the form of teds and SCDs. Maintain TRAVIS drain. Continue with ambulation/physical therapy. Anticipate discharge home tomorrow. Admission and Anticipated Discharge Date Admission Date: April 24, 2022 Subjective Jose is postoperative day 2 status post TLIF L4-5, L5-S1. He is doing well. Leg symptoms improved. Back pain is controlled. TRAVIS drain output last shift of 70 cc. Lab values pending. In physical therapy he was ambulating 250 feet x [address] Positive flatus, no bowel movement. discharge plan is to return home tomorrow. Review of Systems Review of Systems: All systems reviewed & are unremarkable except as noted in HPI & below Physical Exam Physical Exam: He sitting in a chair alert and oriented x3 No acute distress Lumbar dressing is clean dry intact with functioning TRAVIS drain Calf soft nontender bilaterally Strength intact bilateral lower extremities Results & Data ([facility]) Vital Signs (Past 12 Hours) Vital Signs Temp Pulse Resp BP BP Pulse Ox O2 Del Method 04/26/22 07:32 36.5 C 67 19 117/65 99 Room Air 04/25/22 23:29 110/61 04/25/22 22:47 36.5 C 88 16 90/55 L 96 Room Air 04/25/22 20:57 76 114/68
[2022-04-26 08:23] LABS: Calcium 8.2 mg/dl (8.5-10.1); Est GFR (Non-African American) 41.4 ml/min; Potassium 4.8 mmol/L (3.5-5.1)
[2022-04-26] MEDS: oxyCODONE HCL IR 5 MG TAB (IMMEDIATE RELEASE) PO PRN ×2 (08:32→16:30)
[2022-04-26] MEDS: PANTOprazole 40 MG TAB PO SCH (08:33)
[2022-04-26] MEDS: DULoxetine HCL 60 MG CAP PO SCH (08:33)
[2022-04-26] MEDS: ASPIRIN 81 MG ECTAB PO SCH (08:33)
[2022-04-26] MEDS: VALSARTAN/SACUBITRIL 51/49 MG TAB PO SCH ×2 (08:33→21:26)
[2022-04-26] MEDS: CHOLECALCIFEROL 5,000 UNITS 125 MCG TAB PO SCH (08:33)
[2022-04-26] MEDS: METOPROLOL SUCC 25MG EXT REL TAB PO SCH ×2 (08:33→21:27)
[2022-04-26] MEDS: ADVANCED PROBIOTIC 1250 MG CAPSULE PO SCH (08:34)
[2022-04-26] MEDS: dexAMETHasone 6 MG in SYRINGE 0 ML IV SCH (08:34)
[2022-04-26] MEDS: LANTUS PER UNIT CHARGE SQ SCH (08:40)
[2022-04-26] MEDS: INSULIN ASPART PER UNIT SC SCH ×4 (08:41→21:28)
[2022-04-26] MEDS: PREGABALIN 150 MG CAP PO SCH ×2 (08:41→21:28)
--- NOTE | 2022-04-26 15:26 | Hospitalist Progress Note ---
Date of Service April 26, 2022 Assessment & Plan (1) Neurogenic claudication due to lumbar spinal stenosis: Plan: POD#2 L4-S1 decompression and fusion by Dr. Maldonado Activity and wound care orders as per ortho Pain control with bowel regimen PT/OT Monitor H/H for acute blood loss anemia and transfuse blood products PRN EBL 400cc, TRAVIS output 775 cc Acute blood loss anemia Preop Hgb 17.1 --> 13.7 --> 12.4 No indication for transfusion at this time (2) Diabetes: Plan: Hgb A1c 7.7 03/2022 Hold oral agents and utilize Lantus and NovoLog per protocol while hospitalized Glycemic pharmacy consulted by primary service (3) CAD (coronary artery disease): Plan: History of multiple stents and CABG in 2019 Appears stable, no reports of chest pain Continue ASA, statin, beta-verena. Resume clopidogrel at the discretion of spine Ortho. (4) History of CHF (congestive heart failure): Plan: Entresto held last evening due to borderline low BP, resumed this a.m. Volume previously managed with spironolactone however patient reports this was placed on hold about 1 week ago due to hyperkalemia K+ 4.8 Maintain follow-up with outpatient chief orthoptist (5) Obesity: Plan: BMI of 36.9, encourage diet and exercise (6) Sleep apnea: Plan: Home CPAP (7) Neuropathy: Plan: Continue Lyrica DVT PROPHYLAXIS TEDs/SCDs as per spine Ortho Thank you for this consultation. We will follow the patient with you during their hospital stay. You can reach a member of the [facility] Hospitalist Team 02/10 [facility] [place] Text. Admission and Anticipated Discharge Date Admission Date: April 24, 2022 Supervising Physician Co-Signing Physician Notes Patient is seen and examined at bedside. Doing well today. No new complaints. Had bowel movement today. Back pain is controlled. Denies any chest pain, shortness of breath, dizziness, nausea, abdominal pain. Family at bedside. On exam patient is obese, no apparent distress, normocephalic atraumatic, EOMI, normal breath sounds, clear to auscultation, S1-S2, no murmur, no pedal edema, abdomen soft, nontender, bowel sounds present,+ surgical site+ in dressing, + drain, alert, awake, oriented, grossly no focal deficits. Patient is being managed for neurogenic claudication due to lumbar spinal stenosis S/P surgery by Dr. Maldonado. Acute postoperative blood loss anemia. No indication for transfusion currently. Continue incentive spirometry. Bowel regimen to prevent constipation. Continue wound care, PT OT, pain control. Agree with utilizing insulin while hospitalized for diabetes management. Resume Plavix as able. I personally reviewed the record. Patient is interviewed and examined at bedside. Patient's care is coordinated with Tara Tariq BLADE FILER. Please refer to the documentation above for details of patient's presentation and for discussion of other issues. Subjective Follow-up medical management, s/p L4-S1 decompression and fusion. Patient seen and examined. Observed ambulating in the room independently. Reports pain is controlled. Denies chest pain and shortness of breath. No lightheadedness or dizziness. No abdominal pain or nausea. Urinating and + BM. Review of Systems Review of Systems: ROS per HPI, all other systems reviewed and negative Physical Exam Constitutional: WD/WN, vitals as above no acute distress Respiratory: normal respiratory effort, lungs clear to auscultation Cardiovascular: Rate/Rhythm: regular rate and regular rhythm Vessels: normal peripheral pulses Extremities: no edema Gastrointestinal (Abdomen): Percussion/Palpation: abdomen soft; abdomen nontender Musculoskeletal: S/p back surgery, drain in place draining bloody drainage, strength strong and equal BLE Skin: no rashes, warm and dry Neurologic: no focal motor deficits Psychiatric: A+Ox3, euthymic affect Results & Data Results & Data ([facility]) Vital Signs (Past 12 Hours) Vital Signs Temp Pulse Resp BP Pulse Ox O2 Del Method 04/26/22 07:32 36.5 C 67 19 117/65 99 Room Air Laboratory Results Short CBC 04/26/22 Range/Units 07:00 WBC 10.70 (4.8-10.8) K/ul Hgb 12.4 L (14.0-18.0) g/dl Hct 38.4 L (42.0-52.0) % Plt Count 141 (130-400) K/uL [facility] 04/26/22 07:00 Sodium 139 Potassium 4.8 Chloride 106 Carbon Dioxide 29 BUN 27 H Creatinine 1.69 H Glucose 181 H Calcium 8.2 L
[2022-04-26] MEDS: MULTIVITAMIN TAB PO SCH (21:26)
[2022-04-26] MEDS: DOCUSATE SODIUM/SENNA 50/8.6MG TAB PO SCH (21:27)
[2022-04-26] MEDS: traZODone HCL 100 MG TAB PO SCH (21:27)
[2022-04-26] MEDS: ATORVASTATIN 40 MG TAB PO SCH (21:27)
[2022-04-27] MEDS: POLYETHYLENE (MIRALAX) 17 GM PACK PO SCH (06:00)
[2022-04-27] MEDS ORDERED: Nursing to Pharmacy Communication SCH (07:15)
[2022-04-27] MEDS: ASPIRIN 81 MG ECTAB PO SCH (08:11)
[2022-04-27] MEDS: CHOLECALCIFEROL 5,000 UNITS 125 MCG TAB PO SCH (08:11)
[2022-04-27] MEDS: DULoxetine HCL 60 MG CAP PO SCH (08:11)
[2022-04-27] MEDS: METOPROLOL SUCC 25MG EXT REL TAB PO SCH (08:11)
[2022-04-27] MEDS: VALSARTAN/SACUBITRIL 51/49 MG TAB PO SCH (08:11)
[2022-04-27] MEDS: ADVANCED PROBIOTIC 1250 MG CAPSULE PO SCH (08:11)
[2022-04-27] MEDS: PANTOprazole 40 MG TAB PO SCH (08:11)
[2022-04-27] MEDS: PREGABALIN 150 MG CAP PO SCH (08:14)
[2022-04-27 08:30] LABS: BUN Creatinine Ratio 18.9 (10-20); Calcium 8.6 mg/dl (8.5-10.1); Creatinine Clr Calc Pharmacy 70.4 ml/min; Est GFR (African American) 64.7 ml/min; Est GFR (Non-African American) 55.8 ml/min; Potassium 4.5 mmol/L (3.5-5.1)
[2022-04-27 08:32] LABS: Hematocrit (blood only) 38.8 % (42.0-52.0); Hemoglobin 12.9 g/dl (14.0-18.0); Mean Corpuscular Hemoglobin 29.5 pg (25.0-34.0); Mean Corpuscular Hgb Conc 33.2 g/dL (32.0-36.0); Mean Corpuscular Volume 88.8 fL (80.0-100.0); Mean Platelet Volume 9.7 fL (9.4-12.4); Platelet Count 150 K/uL (130-400); RDW Coefficient of Variation 14.5 % (11.5-14.5); RDW Standard Deviation 46.9 fL (36.4-46.3); Red Blood Count 4.37 M/uL (4.70-6.10); White Blood Count 11.35 K/ul (4.8-10.8)
[2022-04-27] MEDS ORDERED: LANTUS PER UNIT CHARGE SQ SCH (09:00)
[2022-04-27] MEDS: INSULIN ASPART PER UNIT SC SCH ×2 (09:28→12:16)
[2022-04-27] MEDS: dexAMETHasone 6 MG in SYRINGE 0 ML IV SCH (09:30)
--- NOTE | 2022-04-27 10:30 | Discharge Summary ---
Date of Service April 27, 2022 Principal Diagnosis Lumbar spinal stenosis with radiculopathy Discharge Data Allergies Allergy/AdvReac Type Severity Reaction Status Date / Time epinephrine AdvReac Unknown panic Verified 04/24/22 10:32 attack Consultations 04/24/22 17:48 Consult Hospitalist Routine Procedures Performed Operation Date: 04/24/22 12:15 Actual Procedures p L4-S1 Decompression and Fusion, Spinal Cord Monitoring(Bilateral) - Yoel Maldonado DO Ordered Studies 04/24/22 [place] lumbar spine 2-3V Routine Hospital Course (1) Neurogenic claudication due to lumbar spinal stenosis: Patient underwent revision decompression fusion tolerated this well was taken to orthopedic for postoperative. Postop day #1 is up and ambulate progress postop day #2 and postoperative 3distracted testing TRAVIS drain decreasing appropriately. Pain well controlled. Socially discharged home. Discharge orders and instructions can be found in the chart for further review. Total Time Total Time Spent Total Time Spent (In Minutes): 20 minutes Discharge Plan Discharge Items Patient Disposition: Home - Self-Care Reason For Visit: Spinal Stenosis, Lumbar Region without Neurogenic Discharge Diagnosis: Lumbar spinal stenosis with neurogenic claudication Activity: As commented below Non-emergency contact: Primary Care Provider Call non-emergency contact if: you have any medication questions Follow-up/Referrals: PCP,NO [Primary Care Provider] - Diet: Regular Addtl Attending Provider Instructions: ACTIVITY RECOMMENDATIONS: SELF CARE INSTRUCTIONS AFTER THORACIC/LUMBAR FUSIONS 1. You may walk to your tolerance. It is good exercise for your legs and back. Expect some back and intermittent leg aches and pains. 2. You may perform "counter-top" level activities (make a sandwich, michelle with a project, etc.). 3. No bending or lifting of more than 10 pounds or back twisting of any nature (roll like a log when turning in bed). 4. You may ride in a car for 20-30 minutes at a time. No driving until after your first visit with your doctor. 5. Frequent changes of position and restricting sitting to 30 minutes at a time will help limit the amount of back spasms and stiffness you may experience. 6. You may discontinue the use of ambulatory aids (cane, crutches, etc.) once your strength and confidence allow. 7. You may advertising executive the shower and let water strike your incision when you arrive home at least once daily. Do not take a tub bath, sit in a hot tub or go into a swimming pool until after your first recheck in the office. SPECIAL CARE INSTRUCTIONS: VERY IMPORTANT TO READ AND REVIEW A. Your surgical incision has been closed with a cosmetic suture under the skin that will dissolve in about 6 weeks. In 14 days, you can use a pair of clean scissors and cut the suture that is left outside of the skin at the ends of your incision. 1. The small skin tapes can be removed 7 days after surgery if they have not fallen off by that point. 2. You may keep the wound open to air as much as possible to promote healing after post-op day number 5 unless told otherwise by your doctor. 3. If you think the wound looks like it is becoming infected (redness or worsening drainage) and/or you are experiencing fever, chill or worsening back pain and muscle spasms, contact the office so that we may evaluate you as soon as possible. B. Complications are uncommon, but please contact us if you have any signs or symptoms of: 1. wound infection (fever higher than 102.5 degrees F, redness, separation of wound, drainage, or increasing pain from the incision) 2. blood clots in legs (pain, swelling, redness and warmth in legs) 3. urinary tract infection (fever higher than 102.5 degrees F, burning upon urination or increased frequency of urination) 4. nerve problems (inability to walk on your toes or heels, numbness, loss of bowel or bladder control) 5. any other symptoms that concern you C. Please call the office at if you have any concerns or questions about your operation or recovery. D. No smoking! Smoking drastically decreases the chance of a solid fusion. E. Do not take any anti-inflammatory medications (Indocin, Advil, Motrin, Aspirin, Naprosyn, etc.) as these may inhibit the chance of a solid fusion. Tylenol is okay to take for pain. MANAGING PAIN AFTER SPINAL SURGERY 1. Narcotic medication is intended for short-term use and will be provided for surgical pain. Surgical pain usually lasts for a period of 4-6 weeks. Narcotic medication includes Percocet, Vicodin, Darvocet, Tylenol #3 or Lortab. 2. Longer-term pain is more appropriately treated with non-narcotic medication such as Tylenol ES. 3. Muscle spasm is not appropriately treated with narcotics. Muscle relaxers such as Soma, Flexeril or Skelaxin can be used along with Tylenol ES. 4. Remember that we all live with some "aches and pains". This is not unusual or uncommon after an injury or as we get older. a. Back pain is expected and may include muscle spasms for 4 to 6 weeks after surgery. The pain should gradually improve. If the pain worsens for no apparent reason, please contact the office. b. Intermittent leg pain may also be experienced and should not be concerned about unless it worsens for no apparent reason. If so, please contact the office. 5. We will provide appropriate medication within the normal guidelines of their prescribed use. We will also be very cautious and aware of potential abuse and extended duration of patients' medication needs. a. Pain medications are for your comfort and to assist with sleep and rest so that the tissue can heal. They are not provided in order to return to normal activity and should not be used through the day. To do so or worsening pain at night can result from ongoing tissue damage and development of tolerance to the prescribed medicine. 6. Please allow 2-3 days to process refills. Prescriptions will not be mailed but must be picked up at the office. FOLLOW UP VISIT: Keep your scheduled follow-up appointment. Any questions, please call the office at . Addtl Equipment Operator/Laborer Provider Instructions: Continue to hold spironolactone until you follow-up with your outpatient chemical plant manager. Pending Studies at Discharge: No Stand-Alone Forms: My [facility] [employer], Smoking Cessation Medications and DC Order Prescriptions: New tramadol 50 mg tablet 50 mg PO Q6H PRN (Reason: pain, moderate) Qty: 30 0RF oxycodone 5 mg tablet 5 mg PO Q6H PRN (Reason: pain, severe) Qty: 30 0RF Continued metformin 500 mg Tablet 500 mg PO BID atorvastatin 80 mg Tablet 80 mg PO QPM clopidogrel 75 mg Tablet 75 mg PO QAM aspirin 81 mg Tablet,Delayed Release (Dr/Ec) 81 mg PO QAM trazodone 100 mg Tablet 100 mg PO HS omeprazole 20 mg Capsule,Delayed Release(Dr/Ec) 20 mg PO QAM metoprolol succinate 25 mg Tablet Extended Release 24 Hr 25 mg PO BID multivitamin Capsule 1 cap PO QPM insulin lispro [Humalog KwikPen Insulin] 100 unit/mL Insulin Pen 1 sliding scale dose SUBCUT USEASDIRECTD Patient Comments: use as needed as directed /check periodically throughout the day duloxetine 60 mg Capsule,Delayed Release(Dr/Ec) 60 mg PO QAM pregabalin [Lyrica] 150 mg Capsule 150 mg PO QAM pregabalin [Lyrica] 150 mg Capsule 300 mg PO HS cholecalciferol (vitamin D3) [Vitamin D3] 125 mcg (5,000 unit) Tablet 125 mcg PO QAM Probiotic 3 billion cell Capsule 3,000 mmu cells PO QAM Rx Instructions: administer with a meal Farxiga 10 mg Tablet 10 mg PO QAM Trulicity 1.5 mg/0.5 mL Pen Injector 1.5 mg SUBCUT WK Patient Comments: sunday Entresto 49-51 mg Tablet 1 tab PO BID oxycodone-acetaminophen 10-325 mg Tablet 1 tab PO Q4H PRN (Reason: Pain) Discontinued spironolactone 25 mg Tablet 25 mg PO QAM Rx Instructions: on hold Discharge Orders: Discharge Order (Routine); Ordered 04/27/22 Ordered By: Yoel Maldonado Admission Data Admit Date/Time: 04/24/22 16:01 Attending Provider: Yoel Maldonado Admit Provider: Yoel Maldonado Primary Care Provider: PCP,NO Other Providers: Marilu Briggs ; Dc Ellis ; Vandana Yeager
--- NOTE | 2022-04-27 15:49 | Hospitalist Progress Note ---
Date of Service April 27, 2022 Assessment & Plan (1) Neurogenic claudication due to lumbar spinal stenosis: (2) Diabetes: (3) CAD (coronary artery disease): (4) History of CHF (congestive heart failure): (5) Obesity: (6) Sleep apnea: (7) Neuropathy: Plan Neurogenic claudication due to lumbar spinal stenosis POD#2 L4-S1 decompression and fusion by Dr. Maldonado Activity and wound care orders as per ortho Pain control with bowel regimen PT/OT Monitor H/H for acute blood loss anemia and transfuse blood products PRN EBL 400cc, TRAVIS output 540 cc Acute blood loss anemia Preop Hgb 17.1 --> 13.7 --> 11.35 No indication for transfusion at this time Diabetes Hgb A1c 7.7 03/2022 Hold oral agents and utilize Lantus and NovoLog per protocol while hospitalized Glycemic pharmacy consulted by primary service CAD (coronary artery disease) History of multiple stents and CABG in 2019 Appears stable, no reports of chest pain Continue ASA, statin, beta-verena. As discussed with ortho today, resume clopidogrel tomorrow morning History of CHF (congestive heart failure) Entresto held last evening due to borderline low BP, resumed this a.m. Volume previously managed with spironolactone however patient reports this was placed on hold about 1 week ago due to hyperkalemia K+ 4.7 Maintain follow-up with outpatient jumpbasting facing baster Obesity BMI of 36.9, encourage diet and exercise Sleep apnea Home CPAP Neuropathy Continue Lyrica DVT PROPHYLAXIS TEDs/SCDs as per spine Ortho Thank you for this consultation. We will follow the patient with you during their hospital stay. You can reach a member of the [facility] Hospitalist Team 02/10 via the [facility]ist role in [place] [employer]. A total of 25 minutes were spent with greater than 50% of that time face to face with the patient, personally reviewing all current laboratories, imaging studie s, past medication reconciliation, outpatient chart review, and discussion with specialists to collaborate care for the patient with attending and utilization of translation services. Please see attending documentation for corrections and/or additions. Admission and Anticipated Discharge Date Admission Date: April 24, 2022 Supervising Physician Co-Signing Physician Notes Patient is seen and examined at bedside.No new complaints. Had bowel mo vements. Back pain is controlled. Plan to be discharged home today. Denies any chest pain, shortness of breath, dizziness, nausea, abdominal pain. On exam patient is obese, no apparent distress, normocephalic atraumatic, EOMI, normal breath sounds, clear to auscultation, S1-S2, no murmur, no pedal edema, abdomen soft, nontender, bowel sounds present,+ surgical site+ in dressing, + drain, alert, awake, oriented, grossly no focal deficits. Patient is being managed for neurogenic claudication due to lumbar spinal stenosis S/P surgery by Dr. Maldonado. Acute postoperative blood loss anemia. No indication for transfusion currently. Continue incentive spirometry. Bowel regimen to prevent constipation. Continue wound care, PT OT, pain control. Agree with utilizing insulin while hospitalized for diabetes management. Resume Plavix upon discharge. I personally reviewed the record. Patient is interviewed and examined at bedside. Patient's care is coordinated with Vandana Yeager PA-C. Please refer to the documentation above for details of patient's presentation and for discussion of other issues. Subjective Follow-up medical management, s/p L4-S1 decompression and fusion. Patient feeling well today. No new symptoms overnight. Ambulating in the room independently. Had a bowel movement yesterday morning. Denies any fever, chills, chest pain, shortness of breath, nausea, vomiting, abdominal pain, dysuria, diarrhea constipation. Review of Systems Review of Systems: At least ten systems reviewed and negative except as noted in the HPI. Physical Exam Physical Exam: Gen: WD/WN, NAD, lying in bed, A&Ox3 HEENT: Normocephalic, atraumatic, conjunctivae moist, sclerae anicteric, mucous membranes moist Lung: Clear to Auscultation bilaterally, no wheezes/rales/rhonchi Heart: Regular rate, regular rhythm, no murmurs, rubs, or gallops Abdomen: Soft, NT, ND +BS x 4 Extremities: +Spinal dressing c/d/i. No edema Skin: Warm, no rash Results & Data Results & Data ([facility]) Vital Signs (Past 12 Hours) Vital Signs Temp Pulse Resp BP BP Pulse Ox O2 Del Method 04/27/22 11:30 37 C 85 20 118/75 99 Room Air 04/27/22 08:11 Room Air 04/27/22 07:45 36.6 C 67 16 118/78 96 Room Air Laboratory Results Short CBC 04/27/22 Range/Units 07:26 WBC 11.35 H (4.8-10.8) K/ul Hgb 12.9 L (14.0-18.0) g/dl Hct 38.8 L (42.0-52.0) % Plt Count 150 (130-400) K/uL BMP 04/27/22 07:26 Sodium 139 Potassium 4.5 Chloride 105 Carbon Dioxide 30 BUN 25 H Creatinine 1.32 D Glucose 160 H Calcium 8.6 Diagnostic Findings Lumbar Spine X-Ray 04/24/22 00:00 [place] lumbar spine 2-3V CLINICAL HISTORY: L4-S1 decompression and fusion COMPARISON STUDY: None. FLUOROSCOPY TIME: 26 seconds. EXPOSURE DOSE: 22.06 mGy FLUOROSCOPIC IMAGES: 2 FINDINGS: Fluoroscopy was provided during L4-L5 and L5-S1 discectomies with interbody spacer placement. The L5-S1 spacer is within the anterior aspect of the disc space. Posterior decompression is noted with bilateral pedicle screws at the L4, L5 and S1 levels with interconnecting rods. IMPRESSION: Fluoroscopy provided during L4-S1 discectomies, posterior decompression and bilateral pedicle screw fusion. ACT 112: Negative or not required by law. Electronically signed by: Sanford Gaytan M.D. 04/24/2022 4:19 PM
== END 2022-04-27 11:55 | disposition home or self-care (01) | DRG 454 ==
LOC: ASU 10:08 → 3N 16:01

== ENCOUNTER 2023-07-31 07:38 | Inpatient (IN) ==
--- NOTE | 2023-07-06 09:34 | PAT Medication Instructions ---
Medication Instructions Date of Service July 06, 2023 Home Medications aspirin 81 mg tablet,delayed release 81 mg PO QAM atorvastatin 80 mg tablet 80 mg PO QPM cholecalciferol (vitamin D3) 125 mcg (5,000 unit) tablet (Vitamin D3) 125 mcg PO QAM clopidogrel 75 mg tablet 75 mg PO QAM dapagliflozin propanediol 10 mg tablet (Farxiga) 10 mg PO QAM duloxetine 60 mg capsule,delayed release 60 mg PO QAM lactobacillus combination no.4 3 billion cell capsule (Probiotic) 3,000 mmu cell s PO QAM metoprolol succinate 25 mg tablet,extended release 24 hr 25 mg PO QAM multivitamin 1 cap PO QPM omeprazole 20 mg capsule,delayed release 20 mg PO QAM oxycodone-acetaminophen 10 mg-325 mg tablet 1 tab PO UD PRN Pain pregabalin 150 mg capsule (Lyrica) 150 mg PO QAM pregabalin 150 mg capsule (Lyrica) 300 mg PO HS sacubitril 49 mg-valsartan 51 mg tablet (Entresto) 1 tab PO BID trazodone 100 mg tablet 100 mg PO HS magnesium oxide 400 mg (241.3 mg magnesium) tablet 400 mg PO QAM tirzepatide 10 mg/0.5 mL subcutaneous pen injector (Mounjaro) 10 mg subcut WK ASK your prescriber and surgeon aspirin 81 mg tablet,delayed release 81 mg PO QAM clopidogrel 75 mg tablet 75 mg PO QAM sacubitril 49 mg-valsartan 51 mg tablet (Entresto) 1 tab PO BID STOP taking 3 days before surgery dapagliflozin propanediol 10 mg tablet (Farxiga) 10 mg PO QAM STOP 7 days prior to surgery tirzepatide 10 mg/0.5 mL subcutaneous pen injector (Mounjaro) 10 mg subcut WK DO NOT take the morning of surgery cholecalciferol (vitamin D3) 125 mcg (5,000 unit) tablet (Vitamin D3) 125 mcg PO QAM lactobacillus combination no.4 3 billion cell capsule (Probiotic) 3,000 mmu cells PO QAM magnesium oxide 400 mg (241.3 mg magnesium) tablet 400 mg PO QAM Take morning of surgery With a small sip of water, OTHERWISE NOTHING TO EAT OR DRINK AFTER MIDNIGHT: duloxetine 60 mg capsule,delayed release 60 mg PO QAM metoprolol succinate 25 mg tablet,extended release 24 hr 25 mg PO QAM omeprazole 20 mg capsule,delayed release 20 mg PO QAM oxycodone-acetaminophen 10 mg-325 mg tablet 1 tab PO UD PRN Pain (if needed) pregabalin 150 mg capsule (Lyrica) 150 mg PO QAM Take evening before surgery atorvastatin 80 mg tablet 80 mg PO QPM multivitamin 1 cap PO QPM oxycodone-acetaminophen 10 mg-325 mg tablet 1 tab PO UD PRN Pain (if needed) pregabalin 150 mg capsule (Lyrica) 300 mg PO HS trazodone 100 mg tablet 100 mg PO HS Other Notes If you have any questions please call us at [phone] or [phone] or [phone] or [phone]
--- NOTE | 2023-07-18 12:53 | Anesthesiology Consultation ---
Date of Service July 18, 2023 Assessment & Plan (1) Encounter for pre-operative examination: - Check BSG AM DOS - Infectious disease screening: Per assessment on 07/18/23: No known infectious disease contacts or current infectious disease symptoms. No noted recent Covid positive test result. - S/P L4-S1 decompression/fusion (04/24/22): Grade 2 view, MAC#3, ETT atraumatic at [facility] - ASA/plavix instructions per surgeon/prescriber - Tirzaepatide/Mounjaro instructions: Patient informed at PAT visit to stop 7 days prior to surgery- voiced understanding. DOS 07/31/23. Advised last dose to be 07/20/23. - Cardiology note (06/26/23): "Low risk.. Patient is cleared for scheduled surgery" - Patient acceptable risk for surgery pending surgeon-ordered PCP preop evaluation ([facility]/Barbra FRANKLIN, appt 07/22). Chart Review Chart Review: Patient NOT seen in Pre Admission Testing History Surgery Operation Date: 07/31/23 07:45 Proposed Procedures p L4-S1 Hardware Removal, L2-L4 Decompression, L2-S1 Fusion, Spinal Cord Monitoring - Yoel Maldonado, DO Height/Weight Height: 5 ft 10 in Weight: 99.3 kg Allergies Allergy/AdvReac Type Severity Reaction Status Date / Time epinephrine AdvReac Unknown Panic Verified 07/10/23 13:24 attack Medications Home Medications Medication Instructions Recorded Confirmed Last Taken aspirin 81 mg tablet,delayed 81 mg PO QAM 04/03/22 07/04/23 04/18/22 19:00 release atorvastatin 80 mg tablet 80 mg PO QPM 04/03/22 07/04/23 04/23/22 19:00 cholecalciferol (vitamin D3) 125 125 mcg PO QAM 04/03/22 07/04/23 04/20/22 19:00 mcg (5,000 unit) tablet (Vitamin D3) clopidogrel 75 mg tablet 75 mg PO QAM 04/03/22 07/04/23 04/18/22 19:00 dapagliflozin propanediol 10 mg 10 mg PO QAM 04/03/22 07/04/23 04/23/22 19:00 tablet (Farxiga) duloxetine 60 mg capsule,delayed 60 mg PO QAM 04/03/22 07/04/2304/24/23 08:00 release lactobacillus combination no.4 3 3,000 mmu cells PO QAM 04/03/22 07/04/23 04/20/22 19:00 billion cell capsule (Probiotic) metoprolol succinate 25 mg 25 mg PO QAM 04/03/22 07/04/23 04/24/22 08:00 tablet,extended release 24 hr multivitamin 1 cap PO QPM 04/03/22 07/04/23 04/23/22 19:00 omeprazole 20 mg capsule,delayed 20 mg PO QAM 04/03/22 07/04/23 04/24/22 08:00 release oxycodone-acetaminophen 10 mg-325 1 tab PO UD PRN Pain 04/03/22 07/04/23 04/21/22 19:00 mg tablet pregabalin 150 mg capsule (Lyrica) 150 mg PO QAM 04/03/22 07/04/23 04/24/22 08:00 pregabalin 150 mg capsule (Lyrica) 300 mg PO HS 04/03/22 07/04/23 04/23/22 19:00 sacubitril 49 mg-valsartan 51 mg 1 tab PO BID 04/03/22 07/04/23 04/24/22 08:00 tablet (Entresto) trazodone 100 mg tablet 100 mg PO HS 04/03/22 07/04/23 04/23/22 23:00 magnesium oxide 400 mg (241.3 mg 400 mg PO QAM 07/04/23 07/04/23 Unknown magnesium) tablet tirzepatide 10 mg/0.5 mL 10 mg subcut WK 07/04/23 07/04/23 06/29/23 subcutaneous pen injector (David) Past Medical History Medical History Back problem LLE radiculopathy Betancourt's esophagus Noted in remote hx, not noted on follow-up scope per pt CAD (coronary artery disease) Hx CABG (2019), cardiac stents (multiple stents including 2005 and 2018, most recently 2019) Depression Diabetes High cholesterol History of CHF (congestive heart failure) History of colon polyps History of kidney stones HTN (hypertension) Low kidney function Myocardial infarct 2004 Neuropathy Feet Obesity Sleep apnea CPAP (compliant) Exercise / Class Metabolic Activity II 4-5 Yardwork/Stairs/Walk up hill (one FS: No CP, no SOB) Past Family History Family History Mother Family history of diabetes mellitus Father Family history of diabetes mellitus Past Surgical History Surgical History History of back surgery History of cardiac cath Multiple cardiac stents (multiple stents including 2004 and 2018, most recently 2018) History of colonoscopy History of endoscopy History of heart bypass surgery 2019 History of lumbar fusion L4-S1 decompression/fusion (04/24/22): Grade 2 view, MAC#3, ETT atraumatic at [facility] S/P insertion of spinal cord stimulator 11/2022 Past Anesthesia History No Hx of Anesthesia Complications and No Family Hx of Anesthesia Complications History of PONV No Hx of PONV and Hx of Motion Sickness (Remote) Social History Smoking Status: Never smoker Do You Dip or Chew Tobacco: No Hx Alcohol Use: No Hx Substance Use: No substance use type: does not use Review of Systems Patient denies chest pain, shortness of breath, dyspnea on exertion, fever, chills, cough, wheezing, palpitations. Physical Exam Vital Signs BP 116/78 P 72 TEMP 97.6 SP02 99%RA RESP 18 Physical Full cervical extension range of motion. Full TMJ range of motion. TMD >3.5 finger breaths Mallampati Score 1 Dentition: intact, + crowns (lower front), +bridge Lungs: clear throughout to auscultation Cardiac: regular rate and rhythm, no murmurs noted Spine: normal Carotid arteries: negative bruit Extremities: no LE edema Lab Results Anesthesia Preop Results Results Anesthesia Widget: WBC 8.95 K/ul (4.8-10.8) 07/18/23 Hgb 16.6 g/dl (14.0-18.0) 07/18/23 Hct 52.7 % (42.0-52.0) H 07/18/23 Plt 184 K/uL (130-400) 07/18/23 Na 141 mmol/L (136-145) 07/18/23 K 4.2 mmol/L (3.5-5.1) 07/18/23 Cl 104 mmol/L (98-107) 07/18/23 CO2 31 mmol/L (21-32) 07/18/23 BUN 17 mg/dl (6-23) 07/18/23 Creat 1.24 mg/dl (0.6-1.4) 07/18/23 Glucose Level 74 mg/dl (70-99(Fasting)) 07/18/23 PT 11.0 Seconds (9.0-12.0) 07/18/23 PTT 28 Seconds (21-31) 07/18/23 INR 1.0 (0.9-1.1) 07/18/23 HA1c 6.0 % (4.5-5.6) H 07/18/23 Urine Color Yellow 07/18/23 Urine Appearance Clear (Clear) 07/18/23 Urine pH 5.5 (4.5-7.5) 07/18/23 Urine Specific [place] 1.019 (1.000-1.030) 07/18/23 Urine Protein Negative (Negative) 07/18/23 Urine Glucose (UA) 3+ (Negative) H 07/18/23 Urine Ketones Negative (Negative) 07/18/23 Urine Blood Negative (Negative) 07/18/23 Urine Nitrite Negative (Negative) 07/18/23 Urine Bilirubin Negative (Negative) 07/18/23 Urine Urobilinogen Negative (Negative) 07/18/23 Urine Leukocyte Esterase Negative (Negative) 07/18/23 Blood Type A Positive 07/18/23 Antibody Screen NEGATIVE 07/18/23 Testing Electrocardiogram Date: 07/18/23 NSR at 72bpm. LAD. NS IVCD. Minimal voltage criteria for LVH, may be normal variant (Cameron product). No significant change compared to 04/10/2022 per supervisor type photography comparison. Echo done 05/25/2023* Chest X-Ray Date: 07/18/23 FINDINGS: Lung volumes are normal. There is no pneumothorax or pleural effusion. Mild cardiomegaly is unchanged. There are median sternotomy wires and mediastinal surgical clips. Intracanalicular electrodes are incidentally noted. IMPRESSION: No acute cardiopulmonary findings. Echocardiogram Date: 05/25/23 LVEF 50-55%. Mild global HK of the LV. Grade I DD. Mild RAD. No significant valvular disease. Cardiac Catheterization Date: 09/11/19 Two vessel CAD. LVEF 35%. Recommendations: CABG x2 (subsequently done).
[~2023-07-31 07:38] MED LIST changes: -ACETAMINOPHEN 500 MG TAB PO SCH; -CeleBREX 200 MG CAP PO SCH; +DEXAMETHASONE SOD INJ 4 MG/ML VIAL ONE; -GABAPENTIN 300 MG CAP PO SCH; +GLYCOPYRROLATE 0.2 MG/ML VIAL ONE; +LIDOCAINE 2% 2 ML VIAL/AMP(20MG/ML) INFIL ONE; -LR 15ML/HR IV SCH; +MIDAZOLAM HCL 1 MG/ML 2ML VIAL ONE; +ONDANSETRON INJ 2 MG/ML 2 ML VIAL ONE; +PROPOFOL IV EMULSION 10 MG/ML 20 ML VIAL IV ONE; +ROCURONIUM BROMIDE 10 MG/ML 5 ML VIAL IV ONE; +SUGAMMADEX SODIUM 200 MG/2 ML VIAL IV ONE; -ceFAZolin 2000MG 2,000 MG/15 ML SYR IV SCH; +fentaNYL citrate PF 100 MCG/2 ML VIAL ONE
[2023-07-31] MEDS: CeleBREX 200 MG CAP PO SCH (08:24)
[2023-07-31] MEDS: LR 60ML/HR IV SCH (08:34)
[2023-07-31] MEDS ORDERED: ePHEDrine sulfate 50 MG/ML AMP IV PRN (08:53)
[2023-07-31] MEDS ORDERED: PROMETHAZINE HCL 6.25 MG in SODIUM CHLORIDE 0.9% 50 ML IV PRN (08:53)
[2023-07-31] MEDS ORDERED: ATROPINE SULFATE 0.1 MG/ML 10ML SYR IV PRN (08:53)
[2023-07-31] MEDS ORDERED: ONDANSETRON INJ 2 MG/ML 2 ML VIAL IV PRN ×2 (08:53→13:43)
[2023-07-31] MEDS: LR 15ML/HR IV SCH (09:04)
--- NOTE | 2023-07-31 09:14 | History & Physical Bridge Note ---
Date of Service July 31, 2023 History & Physical Bridge Note I have examined the patient, reviewed the History & Physical and in the interval since the performance of the History & Physical I have noted the following changes of clinical significance: no changes noted
--- NOTE | 2023-07-31 09:15 | History & Physical Report ---
Date of Service July 31, 2023 Assessment & Plan (1) Neurogenic claudication due to lumbar spinal stenosis: Plan: L4-S1 hardware removal, L2 L4 decompression, L2-S1 fusion. History of Present Illness Chief Complaint: Back and leg pain Primary Care Provider: Barbra Garcia This is a 67 M male presents with chronic persistent back and leg pain after failing since course of nonoperative care is here for surgical invention. Allergies Allergy/AdvReac Type Severity Reaction Status Date / Time epinephrine AdvReac Unknown Panic Verified 07/31/23 08:15 attack Home Medications Medication Instructions Recorded Confirmed Type aspirin 81 mg tablet,delayed 81 mg PO QAM 04/03/22 07/31/23 History release atorvastatin 80 mg tablet 80 mg PO QPM 04/03/22 07/31/23 History cholecalciferol (vitamin D3) 125 125 mcg PO BID 04/03/22 07/31/23 History mcg (5,000 unit) tablet (Vitamin D3) clopidogrel 75 mg tablet 75 mg PO QAM 04/03/22 07/31/23 History dapagliflozin propanediol 10 mg 10 mg PO QAM 04/03/22 07/31/23 History tablet (Farxiga) duloxetine 60 mg capsule,delayed 60 mg PO QAM 04/03/22 07/31/23 History release (Cymbalta) lactobacillus combination no.4 3 3,000 mmu cells PO QAM 04/03/22 07/31/23 History billion cell capsule (Probiotic) metoprolol succinate 25 mg 25 mg PO QAM 04/03/22 07/31/23 History tablet,extended release 24 hr multivitamin 1 cap PO QPM 04/03/22 07/31/23 History omeprazole 20 mg capsule,delayed 20 mg PO QAM 04/03/22 07/31/23 History release oxycodone-acetaminophen 10 mg-325 1 tab PO UD PRN Pain 04/03/22 07/31/23 History mg tablet pregabalin 150 mg capsule (Lyrica) 150 mg PO QAM 04/03/22 07/31/23 History pregabalin 150 mg capsule (Lyrica) 300 mg PO HS 04/03/22 07/31/23 History sacubitril 49 mg-valsartan 51 mg 1 tab PO BID 04/03/22 07/31/23 History tablet (Entresto) trazodone 100 mg tablet 100 mg PO HS 04/03/22 07/31/23 History magnesium oxide 400 mg (241.3 mg 400 mg PO QAM 07/04/23 07/31/23 History magnesium) tablet tirzepatide 10 mg/0.5 mL 10 mg subcut WK 07/04/23 07/31/23 History subcutaneous pen injector (Mounjaro) aripiprazole 10 mg tablet (Abilify) 10 mg PO HS 07/31/23 07/31/23 History Past Med/Surg History Problem List (Updated 07/31/23 @ 08:15 by Cassidy Maharaj, RN) Neurogenic claudication due to lumbar spinal stenosis Diabetes Sleep apnea CPAP (compliant) History of CHF (congestive heart failure) Medical History (Updated 07/31/23 @ 08:15 by Cassidy Maharaj, RN) Lumbar spinal stenosis Diabetes Sleep apnea History of CHF (congestive heart failure) History of colon polyps Depression Obesity CAD (coronary artery disease) Hx CABG (2019), cardiac stents (multiple stents including 2004 and 2018, most recently 2018) Neuropathy Feet Low kidney function History of kidney stones Betancourt's esophagus Noted in remote hx, not noted on follow-up scope per pt High cholesterol HTN (hypertension) Back problem LLE radiculopathy Myocardial infarct 2004 Surgical History History of lumbar fusion L4-S1 decompression/fusion (04/24/22): Grade 2 view, MAC#3, ETT atraumatic at [facility] S/P insertion of spinal cord stimulator 11/2022 History of back surgery History of colonoscopy History of endoscopy History of heart bypass surgery 2019 History of cardiac cath Multiple cardiac stents (multiple stents including 2004 and 2018, most recently 2018) Family History Mother Family history of diabetes mellitus Father Family history of diabetes mellitus Social History Smoking Status: Never smoker Do You Dip or Chew Tobacco: No; Hx Alcohol Use: No Hx Substance Use: No Preferred Language: Czech Communication Ability: Effective Predictive Maintenance Technician Required: No Beliefs That Will Affect Care: None Current Living Situation: Spouse Feels Safe at Home: Yes Assistive Devices: CPAP and Other Assistive Devices Comment: spinal cord stimulator/edu to bring remote dos and day of pat visit. Physical Exam Physical Exam: Patient is alert and oriented Heart regular in rhythm Lungs clear Results & Data Results & Data Vital Signs (Past 12 Hours) Vital Signs Temp Pulse Resp BP Pulse Ox O2 Del Method 07/31/23 08:12 36.6 C 68 20 133/77 99 Room Air
[2023-07-31] MEDS: ceFAZolin 2000MG 2,000 MG/15 ML SYR IV SCH ×2 (09:44→18:12)
[2023-07-31] MEDS: GABAPENTIN 300 MG CAP PO SCH (09:47)
[2023-07-31] MEDS ORDERED: fentaNYL citrate PF 100 MCG/2 ML VIAL ONE (10:21)
[2023-07-31] MEDS: BUPIVACAINE/EPINEPHRINE 0.25% 1:200,000 30 ML VIAL ONE (10:33)
[2023-07-31] MEDS: ceFAZolin 330 MG/ML 1 GM VIAL ONE (10:34)
[2023-07-31] MEDS ORDERED: ePHEDrine sulfate 50 MG/ML AMP ONE (11:09)
[2023-07-31] MEDS: FLOSEAL HEMOSTATIC MATRIX 10ML TOP ONE (11:50)
[2023-07-31] MEDS ORDERED: SUGAMMADEX SODIUM 200 MG/2 ML VIAL IV ONE (11:56)
--- NOTE | 2023-07-31 12:04 | Operative Report ---
Post Operative Report Pre & Post Diagnosis Operation Date: 07/31/23 09:25 Pre-Op Diagnosis: Lumbar Disc Disease with Radiculopathy Lumbar spinal stenosis with neurogenic claudication Post-Op Diagnosis: Same I identified the patient and participated in the time-out.: Yes Procedure Operation Date: 07/31/23 09:25 Actual Procedures #1 removal of posterior instrumentation L4-L5 L5-S1. #2 exploration of fusion L4-L5 L5-S1. #3 lumbar decompression with bilateral medial facetectomies and foraminotomies L2-L3 L3-L4. #4 posterior spinal fusion L2-L3 L3-L4. #5 placement of posterior segmental instrumentation L2-S1. #6 interbody fusion L2- L3 L3-L4. #7 placement of Spira 13 x 26 mm at L2-L3 and 14 x 26 mm at L3-L4. #8 placement locally harvested morselized autograft in the posterior lateral gutters. #9 placement infuse collagen sponge, with Koros bone graft in the posterior lateral gutters and Morpheus bone graft interbody space. Surgeon Yoel Maldonado, DO Butt Trimmer Aziza Womack Estimated Blood Loss 500 Findings See Below Patient is 5 foot 10 weighing over 107 kg with a BMI in excess of 32. Patient's body habitus did create significant technical difficulty with positioning exposure and the procedure itself and at least 50% increased operative time. Specimens None Indications This is a 67-year-old male who presents above-mentioned diagnosis after failed course of nonoperative care is here for surgical invention. Description of Procedure Patient was met with identified informed consent obtained. Patient was then taken to the operative suite underwent patient placed in a prone position on the Nico table on top of the Ismael frame. All bony prominences well-padded eyes inspected to ensure no external pressure placed upon the. This point the lumbar spine was prepped and draped in normal sterile fashion. Sharp dissection with the assistance of Bovie cautery form down to and exposing the lamina transverse processes of L2-L3 and instrumentation at L4-L5 and S1 levels bilaterally. Then proceeded to move the hardware bilaterally explored the fusion mass between L4- L5 L5-S1 noting it to be maturing and intact. Informed complete laminectomy of L3 including bilateral medial facetectomies and foraminotomies followed by complete laminectomy of L2 including bilateral medial facetectomies and foraminotomies addressing severe spinal stenosis. Pedicle screws were then placed at L2-L3-L4 and S1 levels bilaterally with assistance of fluoroscopy and appropriate size tay contoured and placed. By way of transforaminal approach on the right complete discectomy of L3-L4 was performed endplates guarded to subcortical bleeding bone and a 14 x 26 mm spiral cage filled with Morpheus tapped in position. Then proceeded to L2-L3 and again by way of transforaminal approach on the right a complete discectomy performed endplates guided to subcortical bleeding bone and a 13 x 26 mm spiral cage filled with Morpheus bone graft tapped in position. The rods were then compressed locked into final position bilaterally. The transverse processes of L2-L3-L4 burred to subcortical bleeding bone. Infuse collagen sponge combined with Koros bone graft and locally harvested morselized autograft placed in the posterior lateral gutters. 15 round TRAVIS drain inserted. The incision was then closed with 1 Vicryl in the fascia 2-0 Vicryl subcutaneously and 4 Monocryl for final skin closure. Steri-Strips sterile dressing placed. Patient awakened taken to PACU stable condition. Please note spinal cord monitoring was utilized at the procedure no changes noted. Lastly Aziza Womack was present at the entire procedure and on the patient positioning complex portion of the surgery and final skin closure. I attest to the content of the Intraoperative Record and any orders documented therein. Any exceptions are noted below.
[2023-07-31] MEDS: fentaNYL citrate PF 100 MCG/2 ML VIAL IV PRN (12:40)
--- NOTE | 2023-07-31 12:48 | Fluoroscopy Report ---
FL lumbar spine 2-3V CLINICAL HISTORY: L4-S1 HW REMOVAL L2-L4 DECOMPRESSION L2-S1 FUSION COMPARISON STUDY: Lumbar spine fluoroscopic images April 24, 2022. FLUOROSCOPY TIME: 13.3 seconds. Ka, r: 12.95 mGy FLUOROSCOPIC IMAGES: 2 FINDINGS: Fluoroscopy was provided during hardware removal and subsequent L2-L3 and L3-L4 discectomy with interbody spacer placement. There is a fusion extending from L2 through S1. There are bilateral pedicle screws at the L2, L3, L4 and S1 levels. Hardware is intact. IMPRESSION: Fluoroscopy provided during hardware removal and subsequent multilevel decompression and and L2-S1 fusion. ACT 112: Negative or not required by law. Electronically signed by: Sanford Gaytan M.D. 07/31/2023 12:46 PM
[2023-07-31] MEDS ORDERED: HYDROmorphone INJ 0.5 MG/0.5 ML SYR IV PRN (13:43)
[2023-07-31] MEDS ORDERED: hydrOXYzine HCl 25 MG TAB PO PRN (13:43)
[2023-07-31] MEDS ORDERED: NALOXONE HCL 0.4 MG/1 ML VIAL/CARP IV PRN (13:43)
[2023-07-31] MEDS ORDERED: PHARMACY GLYCEMIC MGMT CONSULT PRN (13:43)
[2023-07-31] MEDS ORDERED: PROMETHAZINE HCL 12.5 MG in SODIUM CHLORIDE 0.9% 50 ML IV PRN (13:43)
[2023-07-31] MEDS ORDERED: ONDANSETRON 4 MG OD TAB PO PRN (13:43)
[2023-07-31] MEDS ORDERED: LORazepam 0.5 MG in SYRINGE 0.25 ML IV PRN (13:43)
[2023-07-31] MEDS ORDERED: LORazepam 0.5 MG TAB PO PRN (13:43)
[2023-07-31] MEDS ORDERED: FAMOTIDINE 20 MG TAB PO PRN (13:43)
[2023-07-31] MEDS ORDERED: METOCLOPRAMIDE HCL INJ 5 MG/ML 2 ML VIAL IV PRN (13:43)
[2023-07-31] MEDS ORDERED: bisacodyL 10 MG SUPP PR PRN (13:43)
[2023-07-31] MEDS ORDERED: DO NOT ADMINISTER PNEUMOCOCCAL VACCINE PRN (13:43)
[2023-07-31] MEDS ORDERED: SOD PHOSPHATE/SOD BIPHOSPHATE ENEMA 132 ML BTL PR PRN (13:43)
[2023-07-31] MEDS ORDERED: ALUMINUM/MAGNESIUM SUSP 30 ML UDC PO PRN (13:43)
[2023-07-31] MEDS ORDERED: diphenhydrAMINE Capsule 25 MG CAP PO PRN (13:43)
[2023-07-31] MEDS ORDERED: MAGNESIUM HYDROXIDE SUSP 30 ML UDC PO PRN (13:43)
[2023-07-31] MEDS ORDERED: DO NOT ADMINISTER FLU VACCINE PRN (13:43)
[2023-07-31] MEDS: HYDROmorphone INJ 1 MG/ML SYRINGE IV PRN (14:08)
[2023-07-31] MEDS: ACETAMINOPHEN 1,000 MG/100 ML VIAL IV PRN (14:11)
[2023-07-31] MEDS: SODIUM CHLORIDE 0.9% 1,000 ML IV SCH (14:13)
[2023-07-31] MEDS ORDERED: GLUCAGON FOR INJ 1 MG VIAL IM PRN (14:30)
[2023-07-31] MEDS ORDERED: GLUCOSE 10 TAB/TUBE PO PRN (14:30)
[2023-07-31] MEDS ORDERED: GLUCOSE 40% GEL 15 GM TUBE PO PRN (14:30)
[2023-07-31] MEDS ORDERED: CARBOHYDRATES FOR HYPOGLYCEMIA PO PRN (14:30)
[2023-07-31] MEDS ORDERED: DEXTROSE 50% 50 ML SYRINGE IV PRN (14:30)
--- NOTE | 2023-07-31 14:35 | Pharmacy Report ---
Pharmacy Glycemic Short Note 2 - Date of Service July 31, 2023 - Glycemic Short BSG Results (Last 24 hours): 07/31/23 07/31/23 08:05 12:20 POC Glucose 100 H 122 H OUTPATIENT ANTIDIABETIC REGIMEN: * natalie beasley ASSESSMENT: * 67 year old now s/p surgery, POD - 0, pharmacy consulted for glycemic management. Post op BSG 122 mg/dL - patient did receive steroids intraoperatively, therefore anticipate steroid induced hyperglycemia. Will add on scale for basal at dinner in case BSGs are trending upward. Will start novolog for now with stress of 2/3 dosing PLAN FOR INPATIENT GLYCEMIC CONTROL: * Hold outpatient oral diabetes medications * Basal insulin * Lantus 10-20 units today with dinner * Bolus insulin * NovoLog per scale ACHS or Q6hrs while NPO * Goal Range: Low 110 mg/dL - High 140 mg/dL * Correction Factor: 20 mg/dL/unit * Nutritional / Prandial insulin per carb ratio of 1 unit per 6 grams CHO consumed
--- NOTE | 2023-07-31 14:49 | Consultation ---
Date of Consultation July 31, 2023 Assessment & Plan (1) Neurogenic claudication due to lumbar spinal stenosis: (2) CAD (coronary artery disease): (3) History of CHF (congestive heart failure): (4) Sleep apnea: (5) Diabetes: Plan This is a 67-year-old male who has a significant past medical history of CAD with hx of CABG and stents, CHF, LEONEL, T2DM, HTN, HLD and depression who presents for elective lumbar procedure by Dr. Maldonado. Lumbar spinal stenosis with neurogenic claudication Status post lumbar hardware removal, L2-L4 decompression and L2-S1 fusion by Dr. Maldonado, POD #0 Tolerated the procedure well, preop hemoglobin 16 Pain/wound management per orthopedic Activity and therapy as prescribed orthopedics Encourage incentive spirometry CAD with history of two-vessel CABG in 2019 and a prior history of stents HTN HLD History of cardiomyopathy, ischemic He follows [facility] in [place], [place] Last echocardiogram May 2023 which revealed preserved ejection fraction As an outpatient currently on aspirin, statin, Plavix, Farxiga, Entresto and metoprolol Will need to discuss with orthopedics when okay to resume Plavix T2DM Last A1c 6.0 On Mounjaro and Farxiga Lantus/NovoLog per protocol LEONEL Cpap at Depression Abilify, trazodone, duloxetine mood stable DVT prophylaxis: Per primary FULL CODE PCP: Reji Rider PA Dispo: per primary Thank you for this consultation. We will follow the patient with you during their hospital stay. You can reach a member of the [facility] Hospitalist Team 02/10 via hospitalist role on tiger text. A total of 45 minutes was spent coordinating, documenting, and providing care for this patient excluding time spent in the performance of separately billed services. This included personally viewing all current laboratories and imaging studies, medication reconciliation, outpatient chart review, and discussion with specialists. Pt was seen and examined in collaboration with Dr. Ellis, please see addendum Supervising Physician Co-Signing Physician Notes Patient is a 67-year-old male with history of coronary artery disease, diabetes, obstructive sleep apnea and other medical problems was consulted for postop medical management. Patient underwent lumbar decompression, fusion surgery by Dr. Maldonado today. Patient is doing well postoperatively. Denies any chest pain, dyspnea, dizziness, nausea, vomiting, abdominal pain. Back pain at surgical site is controlled. Offers no other complaints. On exam patient is obese, no apparent distress, normocephalic atraumatic, EOMI, normal breath sounds, clear to auscultation, S1-S2, no murmur, no pedal edema, abdomen soft nontender code artery was not, alert, awake, oriented, grossly no focal deficits, Back: Surgical site in dressing,+ drain. Patient is admitted for postop medical management. Lumbar spinal stenosis with neurogenic claudication S/P surgery. Monitor for postop anemia. Wound care, DVT prophylaxis as per primary team. Incentive spirometry. Pain control, PT OT as able. Blood pressure relatively low. Hold antihypertensives based on parameters. Monitor blood glucose levels, utilize insulin while hospitalized for management of diabetes mellitus. Continue home medications for mood disorder. I personally interviewed and examined at bedside. Patient's care is coordinated with Herlinda Multani PA-C. I have reviewed the advanced practitioner's documentation, and I agree with plan of care. Please refer to the documentation above for details of patient's presentation and for discussion of other issues. I spent a total [id number] coordinating, documenting, and providing care for this patient excluding time spent in the performance of separately billed services. History of Present Illness Requesting Physician: Dr. Maldonado Reason for Consultation: Postop medical management Attending Physician: Yoel Maldonado DO History of Present Illness This is a 67-year-old male who has a significant past medical history of CAD with hx of CABG and stents, CHF, LEONEL, T2DM, HTN, HLD and depression who presents for elective lumbar procedure by Dr. Maldonado. He underwent L4-S1 hardware removal along with L2-L4 decompression and L2-S1 fusion. He tolerated the procedure well. His outpatient medical records were reviewed. He follows with primary care provider in [place]. In regards to his CAD he does take Plavix and aspirin. This was to be held 5 days prior to surgery. His most recent A1c was 6.0 and he is controlled on Mounjaro and farxiga. His last echocardiogram was in May 2023 which revealed LVEF of 50 to 55%, grade 1 diastolic dysfunction and right atrium mildly dilated. He was last seen and evaluated by cardiology on June 04, 2023. He has prior history of cardiac stents and eventually in 2019 he underwent CABG with CONN to LAD and GRACE to left circumflex artery. is at bedside. Post operatively he is having back pain. He denies any f/c/s, chest pain, sob, n/v/d, abd pain. He is tolerating clear liquids. Prior to surgery he denies any issues passing stool or urine. Allergies Allergy/AdvReac Type Severity Reaction Status Date / Time epinephrine AdvReac Unknown Panic Verified 07/31/23 08:15 attack Home Medications Medication Instructions Recorded Confirmed Type aspirin 81 mg tablet,delayed 81 mg PO QAM 04/03/22 07/31/23 History release atorvastatin 80 mg tablet 80 mg PO QPM 04/03/22 07/31/23 History cholecalciferol (vitamin D3) 125 125 mcg PO BID 04/03/22 07/31/23 History mcg (5,000 unit) tablet (Vitamin D3) clopidogrel 75 mg tablet 75 mg PO QAM 04/03/22 07/31/23 History dapagliflozin propanediol 10 mg 10 mg PO QAM 04/03/22 07/31/23 History tablet (Farxiga) duloxetine 60 mg capsule,delayed 60 mg PO QAM 04/03/22 07/31/23 History release (Cymbalta) lactobacillus combination no.4 3 3,000 mmu cells PO QAM 04/03/22 07/31/23 History billion cell capsule (Probiotic) metoprolol succinate 25 mg 25 mg PO QAM 04/03/22 07/31/23 History tablet,extended release 24 hr multivitamin 1 cap PO QPM 04/03/22 07/31/23 History omeprazole 20 mg capsule,delayed 20 mg PO QAM 04/03/22 07/31/23 History release oxycodone-acetaminophen 10 mg-325 1 tab PO UD PRN Pain 04/03/22 07/31/23 History mg tablet pregabalin 150 mg capsule (Lyrica) 150 mg PO QAM 04/03/22 07/31/23 History pregabalin 150 mg capsule (Lyrica) 300 mg PO HS 04/03/22 07/31/23 History sacubitril 49 mg-valsartan 51 mg 1 tab PO BID 04/03/22 07/31/23 History tablet (Entresto) trazodone 100 mg tablet 100 mg PO HS 04/03/22 07/31/23 History magnesium oxide 400 mg (241.3 mg 400 mg PO QAM 07/04/23 07/31/23 History magnesium) tablet tirzepatide 10 mg/0.5 mL 10 mg subcut WK 07/04/23 07/31/23 History subcutaneous pen injector (Mounjaro) aripiprazole 10 mg tablet (Abilify) 10 mg PO HS 07/31/23 07/31/23 History Patient History Medical History Lumbar spinal stenosis Diabetes Sleep apnea History of CHF (congestive heart failure) History of colon polyps Depression Obesity CAD (coronary artery disease) Hx CABG (2019), cardiac stents (multiple stents including 2004 and 2018, most recently 2018) Neuropathy Feet Low kidney function History of kidney stones Betancourt's esophagus Noted in remote hx, not noted on follow-up scope per pt High cholesterol HTN (hypertension) Back problem LLE radiculopathy Myocardial infarct 2004 Surgical History History of lumbar fusion L4-S1 decompression/fusion (04/24/22): Grade 2 view, MAC#3, ETT atraumatic at [facility] S/P insertion of spinal cord stimulator 11/2022 History of back surgery History of colonoscopy History of endoscopy History of heart bypass surgery 2019 History of cardiac cath Multiple cardiac stents (multiple stents including 2004 and 2018, most recently 2018) Family History Mother Family history of diabetes mellitus Father Family history of diabetes mellitus Social History Smoking Status: Never smoker Do You Dip or Chew Tobacco: No; Hx Alcohol Use: No Hx Substance Use: No Preferred Language: Northern Irish Communication Ability: Effective Manager Spa Required: No Beliefs That Will Affect Care: None Current Living Situation: Spouse Feels Safe at Home: Yes Assistive Devices: CPAP and Other Assistive Devices Comment: spinal cord stimulator/edu to bring remote dos and day of pat visit. Review of Systems Review of Systems: All systems reviewed & are unremarkable except as noted in HPI & below Physical Exam Physical Exam: Constitutional: WD/WN, vitals as above, NAD, sitting up in bed, pleasant, conversing easily Head: Normocephalic, Atraumatic Eyes: PERRL, conjunctivae normal, anicteric sclerae ENMT: external ear and nose normal, oropharynx normal Neck: trachea midline, no thyromegaly normal visual inspection Respiratory: normal respiratory effort, lungs clear to auscultation, no wheeze, rales, rhonchi. Normal insp/exp effort, no accessory muscle use Cardiovascular: RRR, no murmur, no edema Vessels: no JVD or carotid bruit Chest: normal inspection of chest Abdomen: normal bowel sounds, soft, nontender, no hepatosplenomegaly Musculoskeletal: no cyanosis or clubbing, extremities motor strength 5/5 Skin: no rashes, warm and dry normal turgor Neurologic: PERRL, EOMI, accommodation nl, no face palsy, no dysarthria CN's II-XI intact bilaterally and moves all extremities Psychiatric: A+Ox3, euthymic affect Lymphatic: no cervical or axillary lymphadenopathy : deferred Results & Data Vital Signs (Past 12 Hours) Vital Signs Temp Pulse Resp BP BP Pulse Ox O2 Del Method 07/31/23 14:10 36.4 C L 71 17 117/75 93 Room Air 07/31/23 13:40 36.4 C L 71 16 114/66 94 Room Air 07/31/23 13:25 36.5 C 74 17 120/66 95 Room Air 07/31/23 13:15 36.5 C 74 17 120/66 95 Room Air 07/31/23 13:05 68 14 115/60 93 Room Air 07/31/23 12:55 66 12 108/64 92 Room Air 07/31/23 12:45 65 13 127/72 100 Oxymask 07/31/23 12:35 67 14 132/71 99 Oxymask 07/31/23 12:25 66 14 117/75 99 Oxymask 07/31/23 12:18 36.4 C L 63 12 131/81 100 Oxymask 07/31/23 08:12 36.6 C 68 20 133/77 99 Room Air O2 Flow Rate 07/31/23 14:10 07/31/23 13:40 07/31/23 13:25 07/31/23 13:15 07/31/23 13:05 07/31/23 12:55 07/31/23 12:45 5 07/31/23 12:35 5 07/31/23 12:25 5 07/31/23 12:18 5 07/31/23 08:12 Laboratory Results Preoperative lab work from 07/18/2023 was personally reviewed and independently interpreted by myself. CBC reveals a stable H&H of 16.6 and 52.7, platelet count of 184, BUN and creatinine of 17 and 1.24 and A1c of 6.0. Diagnostic Findings Lumbar Spine X-Ray 07/31/23 09:25 FL lumbar spine 2-3V CLINICAL HISTORY: L4-S1 HW REMOVAL L2-L4 DECOMPRESSION L2-S1 FUSION COMPARISON STUDY: Lumbar spine fluoroscopic images April 24, 2022. FLUOROSCOPY TIME: 13.3 seconds. Ka, r: 12.95 mGy FLUOROSCOPIC IMAGES: 2 FINDINGS: Fluoroscopy was provided during hardware removal and subsequent L2-L3 and L3-L4 discectomy with interbody spacer placement. There is a fusion extending from L2 through S1. There are bilateral pedicle screws at the L2, L3, L4 and S1 levels. Hardware is intact. IMPRESSION: Fluoroscopy provided during hardware removal and subsequent multilevel decompression and and L2-S1 fusion. ACT 112: Negative or not required by law. Electronically signed by: Sanford Gaytan M.D. 07/31/2023 12:46 PM Medications Administered Current Inpatient Medications Acetaminophen (Acetaminophen 500 Mg Tab) 1,000 mg PO Q8H PRN PRN Reason: MILD Pain Scale 1,2,3 & Pre PT Stop: 08/30/23 13:42 Al Hydrox/Mg Hydrox/Simethicone (Aluminum/Magnesium Susp 30 Ml Udc) 30 ml PO Q6H PRN PRN Reason: Dyspepsia Stop: 08/30/23 13:42 Aripiprazole (Aripiprazole 10 Mg Tab) 10 mg PO HS MICHELINE Stop: 08/30/23 20:59 Aspirin (Aspirin 81 Mg Ectab) 81 mg PO QAM MICHELINE Stop: 08/31/23 08:59 Atorvastatin Calcium (Atorvastatin 40 Mg Tab) 80 mg PO QPM MICHELINE Stop: 08/30/23 20:59 Atropine Sulfate (Atropine Sulfate 0.1 Mg/Ml 10ml Syr) 0.5 mg IV Q1M PRN PRN Reason: PACU Use-HR<40 &/or Bradycardi Stop: 07/31/23 16:53 Bisacodyl (Bisacodyl 10 Mg Supp) 10 mg MD DAILY PRN PRN Reason: Constipation Stop: 08/30/23 13:42 Celecoxib (Celebrex 200 Mg Cap) 200 mg PO PREOP MICHELINE Stop: 07/31/23 18:00 Last Admin: 07/31/23 08:24 Dose: 200 mg Dextrose (Dextrose 50% 50 Ml Syringe) 25 - 50 ml IV UD PRN; Protocol PRN Reason: Hypoglycemia Protocol Stop: 08/30/23 14:29 Diphenhydramine HCl (Diphenhydramine Capsule 25 Mg Cap) 25 mg PO Q6H PRN PRN Reason: Allergic Rhinitis/Insomnia Stop: 08/30/23 13:42 Duloxetine HCl (Duloxetine Hcl 60 Mg Cap) 60 mg PO QAM MICHELINE Stop: 08/31/23 08:59 Ephedrine Sulfate (Ephedrine Sulfate 50 Mg/Ml Amp) 5 mg IV Q5M PRN PRN Reason: PACU Use Only-SBP<90 mmHg Stop: 07/31/23 16:53 Famotidine (Famotidine 20 Mg Tab) 20 mg PO Q12H PRN PRN Reason: Dyspepsia Stop: 08/30/23 13:42 Gabapentin (Gabapentin 300 Mg Cap) 300 mg PO PREOP MICHELINE Stop: 07/31/23 18:00 Last Admin: 07/31/23 09:47 Dose: Not Given Glucagon (Glucagon For Inj 1 Mg Vial) 1 mg IM UD PRN; Protocol PRN Reason: Hypoglycemia Protocol Stop: 08/30/23 14:29 Glucose (Glucose 40% Gel 15 Gm Tube) 15 - 30 gm PO UD PRN; Protocol PRN Reason: Hypoglycemia Protocol Stop: 08/30/23 14:29 Glucose (Glucose 10 Tab/Tube) 4 - 8 tab PO UD PRN; Protocol PRN Reason: Hypoglycemia Protocol Stop: 08/30/23 14:29 Hydromorphone HCl (Hydromorphone Inj 0.5 Mg/0.5 Ml Syr) 0.5 mg IV Q3H PRN PRN Reason: MODERATE Pain (Scale 4,5,6) & Pre PT Stop: 08/14/23 13:42 Hydromorphone HCl (Hydromorphone Inj 1 Mg/Ml Syringe) 1 mg IV Q3H PRN PRN Reason: SEVERE Pain (Scale 7,8,9,10) Stop: 08/14/23 13:42 Last Admin: 07/31/23 14:08 Dose: 1 mg Hydroxyzine HCl (Hydroxyzine Hcl 25 Mg Tab) 25 mg PO Q8H PRN PRN Reason: Anxiety Stop: 08/30/23 13:42 Lactated Ringer's (Lr) 1,000 mls @ 15 mls/hr IV .Q24H MICHELINE Stop: 08/01/23 05:59 Last Infusion: 07/31/23 09:41 Dose: Infused Lactated Ringer's (Lr) 1,000 mls @ 60 mls/hr IV .[id number] MICHELINE Stop: 07/31/23 22:39 Last Admin: 07/31/23 08:34 Dose: Not Given Cefazolin Sodium (Ancef 2000mg) 2,000 mg in 15 mls @ 3.75 mls/min IV PREOP MICHELINE; Protocol Stop: 07/31/23 18:00 Last Admin: 07/31/23 09:44 Dose: 3.75 mls/min Promethazine HCl 6.25 mg/ (Sodium Chloride) 50.25 mls @ 204 mls/hr IV ONCE PRN PRN Reason: PACU Use Only-Nausea/Vomiting Stop: 07/31/23 16:53 Sodium Chloride (Nss) 1,000 mls @ 150 mls/hr IV .Q6H40M MICHELINE Stop: 08/30/23 13:42 Last Admin: 07/31/23 14:13 Dose: 150 mls/hr Promethazine HCl 12.5 mg/ (Sodium Chloride) 50.5 mls @ 202 mls/hr IV Q6H PRN PRN Reason: Nausea &/or Vomiting Stop: 08/30/23 13:42 Acetaminophen (Ofirmev) 1,000 mg in 100 mls @ 400 mls/hr IV Q8H PRN PRN Reason: Pain Rating 1-3 & Pre PT Stop: 08/01/23 13:44 Last Infusion: 07/31/23 14:40 Dose: Infused Cefazolin Sodium (Ancef 2000mg) 2,000 mg in 15 mls @ 3.75 mls/min IV Q8H MICHELINE; Protocol Stop: 08/01/23 02:33 Lorazepam 0.5 mg/ Syringe 0.5 mls @ 2 mls/min IV Q8H PRN; Protocol PRN Reason: Sedation/Anxiety Stop: 08/30/23 13:42 Dexamethasone 6 mg/ Syringe 1.5 mls @ 1 mls/min IV DAILY [facility] Stop: 08/03/23 09:02 Influenza Virus Vaccine Quadrival (Do Not Administer Flu Vaccine) 1 each N/A PRN PRN PRN Reason: Notification Stop: 08/30/23 13:42 Insulin Aspart (Insulin Aspart Per Unit Charge) 0 units SC [facility] Stop: 08/30/23 16:29 Insulin Glargine (Lantus Per Unit Charge) 0 units SC TODAY@1730 [facility]; Protocol Stop: 08/30/23 17:29 Lactobacillus Acidophilus (Advanced Probiotic 625 Mg Capsule) [facility] Stop: 08/31/23 08:59 Lorazepam (Lorazepam 0.5 Mg Tab) 0.5 mg PO Q8H PRN PRN Reason: Sedation/Anxiety Stop: 08/30/23 13:42 Magnesium Hydroxide (Magnesium Hydroxide Susp 30 Ml Udc) 30 ml PO Q24H PRN PRN Reason: Constipation Stop: 08/30/23 13:42 Magnesium Oxide (Magnesium Oxide 400 Mg Tab) [facility] [place] [place] Stop: 08/31/23 08:59 Metoclopramide HCl (Metoclopramide Hcl Inj 5 Mg/Ml 2 Ml Vial) 10 mg IV Q6H PRN PRN Reason: Nausea &/or Vomiting Stop: 08/30/23 13:42 Metoprolol Succinate (Metoprolol Succ 25mg Ext Rel Tab) [facility] [place] [place] Stop: 08/31/23 08:59 Miscellaneous (Carbohydrates For Hypoglycemia ) 15 - 30 gm PO UD PRN PRN Reason: Hypoglycemia Treatment Stop: 08/30/23 14:29 Miscellaneous Information (Pharmacy Glycemic Mgmt Consult) 1 each N/A UD PRN PRN Reason: Consult Stop: 08/30/23 13:42 Multivitamins (Multivitamin Tab) 1 tab PO QPM [facility] Stop: 08/30/23 20:59 Naloxone HCl (Naloxone Hcl 0.4 Mg/1 Ml Vial/Carp) 0.1 mg IV Q5M PRN PRN Reason: Oversedation/Resp depression Stop: 08/30/23 13:42 Ondansetron HCl (Ondansetron Inj 2 Mg/Ml 2 Ml Vial) 4 mg IV ONCE PRN PRN Reason: PACU Use Only-Nausea/Vomiting Stop: 07/31/23 16:53 Ondansetron HCl (Ondansetron Inj 2 Mg/Ml 2 Ml Vial) 4 mg IV Q6H PRN PRN Reason: Nausea &/or Vomiting Stop: 08/30/23 13:42 Ondansetron HCl (Ondansetron 4 Mg Od Tab) 4 mg PO Q6H PRN PRN Reason: Nausea Stop: 08/30/23 13:42 Oxycodone HCl (Oxycodone Hcl Ir 5 Mg Tab (Immediate Release)) 5 - 10 mg PO Q4H PRN PRN Reason: Pain & Pre PT Stop: 08/14/23 13:42 Pantoprazole Sodium (Pantoprazole 40 Mg Tab) 40 mg PO QAM [facility] Stop: 08/31/23 08:59 Pneumococcal Polyvalent Vaccine (Do Not Administer Pneumococcal Vaccine) 1 each N/A PRN PRN PRN Reason: Notification Stop: 08/30/23 13:42 Polyethylene Glycol (Polyethylene (Miralax) 17 Gm Pack) 17 gm PO Q6 [facility] Stop: 08/31/23 05:59 Pregabalin (Pregabalin 150 Mg Cap) 150 mg PO QAM [facility] Stop: 08/31/23 08:59 Pregabalin (Pregabalin 150 Mg Cap) 300 mg PO HS [facility] Stop: 08/30/23 20:59 Sacubitril/Valsartan (Valsartan/Sacubitril 51/49 Mg Tab) 1 tab PO BID [facility] Stop: 08/30/23 20:59 Senna/Docusate Sodium (Docusate Sodium/Senna 50/8.6mg Tab) 2 tab PO HS [facility] Stop: 08/30/23 20:59 Sodium Biphosphate/Sodium Phosphate (Sod Phosphate/Sod Biphosphate Enema 132 Ml Btl) 132 ml MD ONE PRN PRN Reason: Constipation Stop: 08/30/23 13:42 Trazodone HCl (Trazodone Hcl 100 Mg Tab) 100 mg PO HS [facility] Stop: 08/30/23 20:59 Vitamin D (Cholecalciferol 125 Mcg (5,000 Units) Tab) 125 mcg PO BID [facility] Stop: 08/30/23 20:59 ECG Additional Comments: I have independently reviewed and interpreted patient's admitting EKG which revealed: 72 bpm, no st or t wave change, qtc 418ms
--- NOTE | 2023-07-31 14:57 | Anesthesiology Progress Note ---
Date of Service July 31, 2023 Anesthesia Post Procedure Vital Signs Vital Signs: Temp Pulse Resp BP BP Pulse Ox O2 Del Method 07/31/23 14:10 36.4 C L 71 17 117/75 93 Room Air 07/31/23 13:40 36.4 C L 71 16 114/66 94 Room Air 07/31/23 13:25 36.5 C 74 17 120/66 95 Room Air 07/31/23 13:15 36.5 C 74 17 120/66 95 Room Air 07/31/23 13:05 68 14 115/60 93 Room Air 07/31/23 12:55 66 12 108/64 92 Room Air 07/31/23 12:45 65 13 127/72 100 Oxymask 07/31/23 12:35 67 14 132/71 99 Oxymask 07/31/23 12:25 66 14 117/75 99 Oxymask 07/31/23 12:18 36.4 C L 63 12 131/81 100 Oxymask 07/31/23 08:12 36.6 C 68 20 133/77 99 Room Air O2 Flow Rate 07/31/23 14:10 07/31/23 13:40 07/31/23 13:25 07/31/23 13:15 07/31/23 13:05 07/31/23 12:55 07/31/23 12:45 5 07/31/23 12:35 5 07/31/23 12:25 5 07/31/23 12:18 5 07/31/23 08:12 Pain Intensity Right Lower Back: Pain Intensity: 6 Medial Back: Pain Intensity: 8 Transfer of Care Handoff Completed per policy Notes Mental Status: alert / awake / arousable and participated in evaluation Patient Amnestic to Procedure: Yes Nausea / Vomiting: adequately controlled Pain: adequately controlled Airway Patency, RR, SpO2: stable & adequate BP & HR: stable & adequate Hydration State: stable & adequate Anesthetic Complications: no major complications apparent and Pt Satisfied with anesthetic care
[2023-07-31] MEDS: oxyCODONE HCL IR 5 MG TAB (IMMEDIATE RELEASE) PO PRN (16:06)
[2023-07-31] MEDS: LANTUS PER UNIT CHARGE SC SCH (17:58)
[2023-07-31] MEDS: INSULIN ASPART PER UNIT CHARGE SC SCH ×2 (17:58→23:15)
[2023-07-31] MEDS: MULTIVITAMIN TAB PO SCH (20:30)
[2023-07-31] MEDS: CHOLECALCIFEROL 125 MCG (5,000 UNITS) TAB PO SCH (20:30)
[2023-07-31] MEDS: ATORVASTATIN 40 MG TAB PO SCH (20:30)
[2023-07-31] MEDS: DOCUSATE SODIUM/SENNA 50/8.6MG TAB PO SCH (20:31)
[2023-07-31] MEDS: VALSARTAN/SACUBITRIL 51/49 MG TAB PO SCH (20:31)
[2023-07-31] MEDS: ARIPiprazole 10 MG TAB PO SCH (20:31)
[2023-07-31] MEDS: traZODone HCL 100 MG TAB PO SCH (20:31)
[2023-07-31] MEDS: PREGABALIN 150 MG CAP PO SCH (20:32)
[2023-08-01] MEDS: POLYETHYLENE (MIRALAX) 17 GM PACK PO SCH (05:28)
[2023-08-01 06:15] LABS: Basophils # (auto) 0.03 K/uL (0.00-0.20); Basophils % (auto) 0.2 %; Eosinophils # (auto) 0.01 K/uL (0.00-0.50); Eosinophils % (auto) 0.1 %; Hematocrit (blood only) 37.2 % (42.0-52.0); Hemoglobin 11.8 g/dl (14.0-18.0); Immature Granulocytes # (auto) 0.07 K/uL (0.01-0.20); Immature Granulocytes % (auto) 0.5 %; Lymphocytes # (auto) 1.82 K/uL (1.20-3.40); Lymphocytes % (auto) 13.1 %; Mean Corpuscular Hemoglobin 27.7 pg (25.0-34.0); Mean Corpuscular Hgb Conc 31.7 g/dL (32.0-36.0); Mean Corpuscular Volume 87.3 fL (80.0-100.0); Monocytes # (auto) 0.79 K/uL (0.11-0.59); Monocytes % (auto) 5.7 %; Neutrophils % (auto) 80.4 %; Platelet Count 157 K/uL (130-400); RDW Coefficient of Variation 14.9 % (11.5-14.5); RDW Standard Deviation 47.9 fL (36.4-46.3); Red Blood Count 4.26 M/uL (4.70-6.10); White Blood Count 13.92 K/ul (4.8-10.8)
[2023-08-01 06:36] LABS: BUN Creatinine Ratio 10.7 (10-20); Creatinine Clr Calc Pharmacy 65.7 ml/min; Est GFR (African American) 64.8 ml/min; Est GFR (Non-African American) 55.9 ml/min; Potassium 4.3 mmol/L (3.5-5.1)
--- NOTE | 2023-08-01 07:12 | Pharmacy Report ---
Pharmacy Glycemic Short Note 2 - Date of Service August 01, 2023 - Glycemic Short BSG Results (Last 24 hours): 07/31/23 07/31/23 07/31/23 08:05 12:20 16:21 Glucose POC Glucose 100 H 122 H 128 H 07/31/23 07/31/23 08/01/23 20:17 23:08 05:32 Glucose 120 H POC Glucose 137 H 131 H OUTPATIENT ANTIDIABETIC REGIMEN: * natalie beasley ASSESSMENT: 07/31 * Patient received total of 19 units of insulin yesterday, of which 10 units were basal insulin to help cover steroids intraoperatively * Fasting BSG 120 mg/dL - DXM 6 mg iv ordered daily this AM, will continue with 10 units of basal insulin daily for steroid coverage * Continue same CF/CR 07/30 * 67 year old now s/p surgery, POD - 0, pharmacy consulted for glycemic management. Post op BSG 122 mg/dL - patient did receive steroids intraoperatively, therefore anticipate steroid induced hyperglycemia. Will add on scale for basal at dinner in case BSGs are trending upward. Will start novolog for now with stress of 2/3 dosing PLAN FOR INPATIENT GLYCEMIC CONTROL: * Hold outpatient oral diabetes medications * Basal insulin * Lantus 10 units daily with IV dexamethasone * Bolus insulin * NovoLog per scale ACHS or Q6hrs while NPO * Goal Range: Low 110 mg/dL - High 140 mg/dL * Correction Factor: 20 mg/dL/unit * Nutritional / Prandial insulin per carb ratio of 1 unit per 6 grams CHO consumed
[2023-08-01] MEDS: dexAMETHasone 6 MG in SYRINGE 0 ML IV SCH (08:00)
[2023-08-01] MEDS: DULoxetine HCL 60 MG CAP PO SCH (08:00)
[2023-08-01] MEDS: ASPIRIN 81 MG ECTAB PO SCH (08:00)
[2023-08-01] MEDS: ADVANCED PROBIOTIC 625 MG CAPSULE PO SCH (08:01)
[2023-08-01] MEDS: MAGNESIUM OXIDE 400 MG TAB PO SCH (08:01)
[2023-08-01] MEDS: PANTOprazole 40 MG TAB PO SCH (08:01)
[2023-08-01] MEDS: METOPROLOL SUCC 25MG EXT REL TAB PO SCH (08:01)
[2023-08-01] MEDS: LANTUS PER UNIT CHARGE SC SCH (08:45)
[2023-08-01] MEDS: PREGABALIN 150 MG CAP PO SCH (08:45)
--- NOTE | 2023-08-01 09:59 | Orthopedic Progress Note ---
Date of Service August 01, 2023 Assessment & Plan (1) Neurogenic claudication due to lumbar spinal stenosis: Plan: At this time we will continue physical therapy monitor his TRAVIS output anticipate discharge home in the next few days. Admission and Anticipated Discharge Date Admission Date: July 31, 2023 Subjective Back pain controlled leg pain markedly improved. Patient has been up and ambulating halls. Physical Exam Physical Exam: Patient is in the chair at the bedside. He is comfortable. Good strength testing. Results & Data Vital Signs (Past 12 Hours) Vital Signs Temp Pulse Pulse Resp BP Pulse Ox O2 Del Method 08/01/23 07:36 36.6 C 63 16 98/61 L 98 Room Air 08/01/23 05:25 36.6 C 74 18 104/62 92 Room Air 08/01/23 01:48 88 16 99/63 L 98 CPAP 07/31/23 23:07 36.4 C L 72 18 89/48 L 98 Room Air Queries Orthopedic Spine Obesity: Yes
--- NOTE | 2023-08-01 13:04 | Hospitalist Progress Note ---
Date of Service August 01, 2023 Assessment & Plan (1) Neurogenic claudication due to lumbar spinal stenosis: (2) CAD (coronary artery disease): (3) History of CHF (congestive heart failure): (4) Sleep apnea: (5) Diabetes: (6) Acute blood loss anemia: Plan This is a 67-year-old male who has a significant past medical history of CAD with hx of CABG and stents, CHF, LEONEL, T2DM, HTN, HLD and depression who presents for elective lumbar procedure by Dr. Maldonado. Lumbar spinal stenosis with neurogenic claudication Status post lumbar hardware removal, L2-L4 decompression and L2-S1 fusion by Dr. Maldonado, POD #0 Tolerated the procedure well, preop hemoglobin 16 Pain/wound management per orthopedic Activity and therapy as prescribed orthopedics Encourage incentive spirometry Acute blood loss anemia 2/2 expected surgical blood loss and dilution pre op hgb 16 pod #1 hgb 11.8 follow cbc, no indication for transfusion Leukocytosis likely reactive from surgery no active infection CAD with history of two-vessel CABG in 2019 and a prior history of stents HTN HLD History of cardiomyopathy, ischemic He follows [facility] in [place], [place] Last echocardiogram May 2023 which revealed preserved ejection fraction As an outpatient currently on aspirin, statin, Plavix, Farxiga, Entresto and metoprolol Will need to discuss with orthopedics when okay to resume Plavix T2DM Last A1c 6.0 On Mounjaro and Farxiga Lantus/NovoLog per protocol LEONEL Cpap at HS Depression Abilify, trazodone, duloxetine mood stable DVT prophylaxis: Per primary FULL CODE PCP: Reji Rider PA Dispo: per primary Thank you for this consultation. We will follow the patient with you during their hospital stay. You can reach a member of the [facility] Hospitalist Team 02/10 via hospitalist role on tiger text. A total of 42 minutes was spent coordinating, documenting, and providing care for this patient excluding time spent in the performance of separately billed services. This included personally viewing all current laboratories and imaging studies, medication reconciliation, outpatient chart review, and discussion with specialists. Admission and Anticipated Discharge Date Admission Date: July 31, 2023 Supervising Physician Co-Signing Physician Notes I have seen and discussed the case with the collaborating advanced practitioner. I agree with the above H&P. I have reviewed and confirmed the patients medical history, the findings on physical examination, and the patients diagnosis and treatment plan with Rangel CONNOLLY and agree with the information documented. I have reviewed the advanced practitioner's documentation, and I agree with, and take responsibility for the plan of care Subjective Patient was seen and examined in room 387. Follow-up lumbar surgery. He already had a Awan catheter removed and has been up walking with therapy. He is having some low back discomfort but denies any radicular symptoms. "I was tackled when I did not have pain down my legs." He is urinating without difficulty, although he admits he did have difficulty starting stream at first. He denies any fever, chills, sweats, chest pain, shortness breath, nausea, vomiting or abdominal pain. He has not yet passed flatus. Review of Systems Review of Systems: All systems reviewed & are unremarkable except as noted in HPI & below Physical Exam Physical Exam: Gen: WD/WN, NAD, A&O x3 HEENT: Normocephalic, atraumatic, conjunctivae moist, sclerae anicteric, mucous membranes moist. Lung: Clear to Auscultation bilaterally, no wheezes/rales/rhonchi Heart: Regular rate, regular rhythm, no murmurs, rubs, or gallops Abdomen: Soft, NT, ND +BS x 4 Extremities: No edema, lumbar dressing CDI, TRAVIS drain with serosang drainage Skin: Warm, no rash, negative turgor. Results & Data Results & Data Vital Signs (Past 12 Hours) Vital Signs Temp Pulse Pulse Resp BP BP Pulse Ox 08/01/23 12:03 36.6 C 75 17 118/71 98 08/01/23 07:36 36.6 C 63 16 98/61 L 98 08/01/23 05:25 36.6 C 74 18 104/62 92 08/01/23 01:48 88 16 99/63 L 98 O2 Del Method 08/01/23 12:03 Room Air 08/01/23 07:36 Room Air 08/01/23 05:25 Room Air 08/01/23 01:48 CPAP Diagnostic Findings Short CBC 08/01/23 Range/Units 05:32 WBC 13.92 H (4.8-10.8) K/ul Hgb 11.8 L (14.0-18.0) g/dl Hct 37.2 L (42.0-52.0) % Plt Count 157 (130-400) K/uL BMP 08/01/23 05:32 Sodium 140 Potassium 4.3 Chloride 110 H Carbon Dioxide 27 BUN 14 Creatinine 1.31 Glucose 120 H Calcium 8.0 L Medications Administered Current Inpatient Medications Acetaminophen (Acetaminophen 500 Mg Tab) 1,000 mg PO Q8H PRN PRN Reason: MILD Pain Scale 1,2,3 & Pre PT Stop: 08/30/23 13:42 Al Hydrox/Mg Hydrox/Simethicone (Aluminum/Magnesium Susp 30 Ml Udc) 30 ml PO Q6H PRN PRN Reason: Dyspepsia Stop: 08/30/23 13:42 Aripiprazole (Aripiprazole 10 Mg Tab) 10 mg PO HS MICHELINE Stop: 08/30/23 20:59 Last Admin: 07/31/23 20:31 Dose: 10 mg Aspirin (Aspirin 81 Mg Ectab) 81 mg PO QAM [facility] Stop: 08/31/23 08:59 Last Admin: 08/01/23 08:00 Dose: 81 mg Atorvastatin Calcium (Atorvastatin 40 Mg Tab) 80 mg PO QPM MICHELINE Stop: 08/30/23 20:59 Last Admin: 07/31/23 20:30 Dose: 80 mg Bisacodyl (Bisacodyl 10 Mg Supp) 10 mg RI DAILY PRN PRN Reason: Constipation Stop: 08/30/23 13:42 Dextrose (Dextrose 50% 50 Ml Syringe) 25 - 50 ml IV UD PRN; Protocol PRN Reason: Hypoglycemia Protocol Stop: 08/30/23 14:29 Diphenhydramine HCl (Diphenhydramine Capsule 25 Mg Cap) 25 mg PO Q6H PRN PRN Reason: Allergic Rhinitis/Insomnia Stop: 08/30/23 13:42 Duloxetine HCl (Duloxetine Hcl 60 Mg Cap) 60 mg PO QAM MICHELINE Stop: 08/31/23 08:59 Last Admin: 08/01/23 08:00 Dose: 60 mg Famotidine (Famotidine 20 Mg Tab) 20 mg PO Q12H PRN PRN Reason: Dyspepsia Stop: 08/30/23 13:42 Glucagon (Glucagon For Inj 1 Mg Vial) 1 mg IM UD PRN; Protocol PRN Reason: Hypoglycemia Protocol Stop: 08/30/23 14:29 Glucose (Glucose 40% Gel 15 Gm Tube) 15 - 30 gm PO UD PRN; Protocol PRN Reason: Hypoglycemia Protocol Stop: 08/30/23 14:29 Glucose (Glucose 10 Tab/Tube) 4 - 8 tab PO UD PRN; Protocol PRN Reason: Hypoglycemia Protocol Stop: 08/30/23 14:29 Hydromorphone HCl (Hydromorphone Inj 0.5 Mg/0.5 Ml Syr) 0.5 mg IV Q3H PRN PRN Reason: MODERATE Pain (Scale 4,5,6) & Pre PT Stop: 08/14/23 13:42 Hydromorphone HCl (Hydromorphone Inj 1 Mg/Ml Syringe) 1 mg IV Q3H PRN PRN Reason: SEVERE Pain (Scale 7,8,9,10) Stop: 08/14/23 13:42 Last Admin: 07/31/23 14:08 Dose: 1 mg Hydroxyzine HCl (Hydroxyzine Hcl 25 Mg Tab) 25 mg PO Q8H PRN PRN Reason: Anxiety Stop: 08/30/23 13:42 Sodium Chloride (Nss) 1,000 mls @ 150 mls/hr IV .Q6H40M MICHELINE Stop: 08/30/23 13:42 Last Admin: 08/01/23 12:56 Dose: Not Given Promethazine HCl 12.5 mg/ (Sodium Chloride) 50.5 mls @ 202 mls/hr IV Q6H PRN PRN Reason: Nausea &/or Vomiting Stop: 08/30/23 13:42 Acetaminophen (Ofirmev) 1,000 mg in 100 mls @ 400 mls/hr IV Q8H PRN PRN Reason: Pain Rating 1-3 & Pre PT Stop: 08/01/23 13:44 Last Infusion: 07/31/23 14:40 Dose: Infused Lorazepam 0.5 mg/ Syringe 0.5 mls @ 2 mls/min IV Q8H PRN; Protocol PRN Reason: Sedation/Anxiety Stop: 08/30/23 13:42 Dexamethasone 6 mg/ Syringe 1.5 mls @ 1 mls/min IV DAILY MICHELINE Stop: 08/03/23 09:02 Last Admin: 08/01/23 08:00 Dose: 1 mls/min Influenza Virus Vaccine Quadrival (Do Not Administer Flu Vaccine) 1 each N/A PRN PRN PRN Reason: Notification Stop: 08/30/23 13:42 Insulin Aspart (Insulin Aspart Per Unit Charge) 0 units SC ACHS [facility] Stop: 08/30/23 16:29 Last Admin: 08/01/23 12:55 Dose: 3 units Insulin Glargine (Lantus Per Unit Charge) 10 units SC DAILY [facility] Stop: 08/03/23 12:00 Last Admin: 08/01/23 08:45 Dose: 10 units Lactobacillus Acidophilus (Advanced Probiotic 625 Mg Capsule) [facility] Stop: 08/31/23 08:59 Last Admin: 08/01/23 08:01 Dose: 625 mg Lorazepam (Lorazepam 0.5 Mg Tab) 0.5 mg PO Q8H PRN PRN Reason: Sedation/Anxiety Stop: 08/30/23 13:42 Magnesium Hydroxide (Magnesium Hydroxide Susp 30 Ml Udc) 30 ml PO Q24H PRN PRN Reason: Constipation Stop: 08/30/23 13:42 Magnesium Oxide (Magnesium Oxide 400 Mg Tab) 400 mg PO [facility] Stop: 08/31/23 08:59 Last Admin: 08/01/23 08:01 Dose: 400 mg Metoclopramide HCl (Metoclopramide Hcl Inj 5 Mg/Ml 2 Ml Vial) 10 mg IV Q6H PRN PRN Reason: Nausea &/or Vomiting Stop: 08/30/23 13:42 Metoprolol Succinate (Metoprolol Succ 25mg Ext Rel Tab) 25 mg PO [facility] Stop: 08/31/23 08:59 Last Admin: 08/01/23 08:01 Dose: Not Given Miscellaneous (Carbohydrates For Hypoglycemia ) 15 - 30 gm PO UD PRN PRN Reason: Hypoglycemia Treatment Stop: 08/30/23 14:29 Miscellaneous Information (Pharmacy Glycemic Mgmt Consult) 1 each N/A UD PRN PRN Reason: Consult Stop: 08/30/23 13:42 Multivitamins (Multivitamin Tab) 1 tab PO QPM [facility] Stop: 08/30/23 20:59 Last Admin: 07/31/23 20:30 Dose: 1 tab Naloxone HCl (Naloxone Hcl 0.4 Mg/1 Ml Vial/Carp) 0.1 mg IV Q5M PRN PRN Reason: Oversedation/Resp depression Stop: 08/30/23 13:42 Ondansetron HCl (Ondansetron Inj 2 Mg/Ml 2 Ml Vial) 4 mg IV Q6H PRN PRN Reason: Nausea &/or Vomiting Stop: 08/30/23 13:42 Ondansetron HCl (Ondansetron 4 Mg Od Tab) 4 mg PO Q6H PRN PRN Reason: Nausea Stop: 08/30/23 13:42 Oxycodone HCl (Oxycodone Hcl Ir 5 Mg Tab (Immediate Release)) 5 - 10 mg PO Q4H PRN PRN Reason: Pain & Pre PT Stop: 08/14/23 13:42 Last Admin: 08/01/23 05:38 Dose: 10 mg Pantoprazole Sodium (Pantoprazole 40 Mg Tab) 40 mg PO QAM [facility] Stop: 08/31/23 08:59 Last Admin: 08/01/23 08:01 Dose: 40 mg Pneumococcal Polyvalent Vaccine (Do Not Administer Pneumococcal Vaccine) 1 each N/A PRN PRN PRN Reason: Notification Stop: 08/30/23 13:42 Polyethylene Glycol (Polyethylene (Miralax) 17 Gm Pack) 17 gm PO Q6 [facility] Stop: 08/31/23 05:59 Last Admin: 08/01/23 12:55 Dose: 17 gm Pregabalin (Pregabalin 150 Mg Cap) 150 mg PO QAM [facility] Stop: 08/31/23 08:59 Last Admin: 08/01/23 08:45 Dose: 150 mg Pregabalin (Pregabalin 150 Mg Cap) 300 mg PO HS [facility] Stop: 08/30/23 20:59 Last Admin: 07/31/23 20:32 Dose: 300 mg Sacubitril/Valsartan (Valsartan/Sacubitril 51/49 Mg Tab) 1 tab PO BID [facility] Stop: 08/30/23 20:59 Last Admin: 08/01/23 08:01 Dose: 1 tab Senna/Docusate Sodium (Docusate Sodium/Senna 50/8.6mg Tab) 2 tab PO HS [facility] Stop: 08/30/23 20:59 Last Admin: 07/31/23 20:31 Dose: 2 tab Sodium Biphosphate/Sodium Phosphate (Sod Phosphate/Sod Biphosphate Enema 132 Ml Btl) 132 ml RI ONE PRN PRN Reason: Constipation Stop: 08/30/23 13:42 Trazodone HCl (Trazodone Hcl 100 Mg Tab) 100 mg PO [facility] Stop: 08/30/23 20:59 Last Admin: 07/31/23 20:31 Dose: 100 mg Vitamin D (Cholecalciferol 125 Mcg (5,000 Units) Tab) 125 mcg PO BID [facility] Stop: 08/30/23 20:59 Last Admin: 08/01/23 08:00 Dose: 125 mcg
[2023-08-01] MEDS: ACETAMINOPHEN 500 MG TAB PO PRN (14:12)
--- NOTE | 2023-08-02 10:48 | Orthopedic Progress Note ---
Date of Service August 02, 2023 Assessment & Plan (1) Neurogenic claudication due to lumbar spinal stenosis: Plan: Jose is postoperative day 2 status post hard removal L4-S1, decompression and instrumented fusion L2-S1. I will continue with physical therapy and ambulation today. Maintain TRAVIS drain. Continue with aggressive bowel regimen. Maintain pain control. Anticipate discharge home tomorrow Admission and Anticipated Discharge Date Admission Date: July 31, 2023 Subjective Jose is postoperative day 2 status post hard removal L4-S1, decompression L2-4 with instrumented fusion from L2-S1. He is doing quite well. Radicular leg symptoms greatly improved. He is making great progress in physical therapy. TRAVIS drain output diminishing appropriately. Does feel that the right lower extremity is still slightly weaker than the left. Review of Systems Review of Systems: All systems reviewed & are unremarkable except as noted in HPI & below Physical Exam Physical Exam: He was also seen and examined with Dr. Maldonado. He is in no acute distress. Lumbar dressing is clean dry and intact with functioning TRAVIS drain Strength is intact bilateral lower extremities Calf soft and nontender bilaterally Results & Data Vital Signs (Past 12 Hours) Vital Signs Temp Pulse Resp BP Pulse Ox O2 Del Method 08/02/23 07:31 36.8 C 69 16 100/61 93 Room Air 08/02/23 00:22 Room Air Queries Orthopedic Spine Obesity: Yes
--- NOTE | 2023-08-02 15:20 | Hospitalist Progress Note ---
Date of Service August 02, 2023 Assessment & Plan (1) Neurogenic claudication due to lumbar spinal stenosis: (2) CAD (coronary artery disease): (3) History of CHF (congestive heart failure): (4) Sleep apnea: (5) Diabetes: (6) Acute blood loss anemia: Plan This is a 67-year-old male who has a significant past medical history of CAD with hx of CABG and stents, CHF, LEONEL, T2DM, HTN, HLD and depression who is s/p lumbar hardware removal and decompression 07/30 Lumbar spinal stenosis with neurogenic claudication Status post lumbar hardware removal, L2-L4 decompression and L2-S1 fusion by Dr. Maldonado, POD #2 Tolerated the procedure well, preop hemoglobin 16 Pain/wound management per orthopedic Activity and therapy as prescribed orthopedics Encourage incentive spirometry Acute blood loss anemia 2/2 expected surgical blood loss and dilution pre op hgb 16 pod #1 hgb 11.8 -Will repeat CBC in am Leukocytosis likely reactive from surgery cbc in am, no signs of infection CAD with history of two-vessel CABG in 2019 and a prior history of stents HTN HLD History of cardiomyopathy, ischemic He follows [facility] in [place], [place] Last echocardiogram May 2023 which revealed preserved ejection fraction As an outpatient currently on aspirin, statin, Plavix, Farxiga, Entresto and metoprolol Resume plavix likely tomorrow T2DM Last A1c 6.0 On Mounjaro and Farxiga Lantus/NovoLog per protocol LEONEL Cpap at HS Depression Abilify, trazodone, duloxetine mood stable DVT prophylaxis: Per primary FULL CODE PCP: Reji Rider PA Dispo: per primary Thank you for this consultation. We will follow the patient with you during their hospital stay. You can reach a member of the [facility] Hospitalist Team 02/10 via hospitalist role on tiger text. A total of 35 minutes was spent coordinating, documenting, and providing care for this patient excluding time spent in the performance of separately billed services. This included personally viewing all current laboratories and imaging studies, medication reconciliation, outpatient chart review, and discussion with specialists. Admission and Anticipated Discharge Date Admission Date: July 31, 2023 Subjective NAEO Reports feeling well overall, pain controlled Physical Exam Constitutional: WD/WN, vitals as above Respiratory: normal respiratory effort, lungs clear to auscultation Cardiovascular: RRR, no murmur, no edema Gastrointestinal (Abdomen): normal bowel sounds, soft, nontender, no hepatosplenomegaly Musculoskeletal: no cyanosis or clubbing, extremities motor strength 5/5 Results & Data Results & Data Vital Signs (Past 12 Hours) Vital Signs Temp Pulse Resp BP Pulse Ox O2 Del Method 08/02/23 07:31 36.8 C 69 16 100/61 93 Room Air Medications Administered Home Medications Medication Instructions Recorded Confirmed Last Taken aspirin 81 mg tablet,delayed 81 mg PO QAM 04/03/22 07/31/23 07/25/23 release atorvastatin 80 mg tablet 80 mg PO QPM 04/03/22 07/31/23 07/30/23 19:00 cholecalciferol (vitamin D3) 125 125 mcg PO BID 04/03/22 07/31/23 07/29/23 mcg (5,000 unit) tablet (Vitamin D3) clopidogrel 75 mg tablet 75 mg PO QAM 04/03/22 07/31/23 07/25/23 dapagliflozin propanediol 10 mg 10 mg PO QAM 04/03/22 07/31/23 07/25/23 tablet (Farxiga) duloxetine 60 mg capsule,delayed 60 mg PO QAM 04/03/22 07/31/23 07/31/23 05:30 release (Cymbalta) lactobacillus combination no.4 3 3,000 mmu cells PO QAM 04/03/22 07/31/23 07/27/23 billion cell capsule (Probiotic) metoprolol succinate 25 mg 25 mg PO QAM 04/03/22 07/31/23 07/31/23 05:30 tablet,extended release 24 hr multivitamin 1 cap PO QPM 04/03/22 07/31/23 07/30/23 19:00 omeprazole 20 mg capsule,delayed 20 mg PO QAM 04/03/22 07/31/23 07/31/23 05:30 release oxycodone-acetaminophen 10 mg-325 1 tab PO UD PRN Pain 04/03/22 07/31/23 07/30/23 13:00 mg tablet pregabalin 150 mg capsule (Lyrica) 150 mg PO QAM 04/03/22 07/31/23 07/31/23 05:30 pregabalin 150 mg capsule (Lyrica) 300 mg PO HS 04/03/22 07/31/23 07/30/23 19:00 sacubitril 49 mg-valsartan 51 mg 1 tab PO BID 04/03/22 07/31/23 07/29/23 tablet (Entresto) trazodone 100 mg tablet 100 mg PO HS 04/03/22 07/31/23 07/30/23 22:00 magnesium oxide 400 mg (241.3 mg 400 mg PO QAM 07/04/23 07/31/23 07/29/23 magnesium) tablet tirzepatide 10 mg/0.5 mL 10 mg subcut WK 07/04/23 07/31/23 07/20/23 subcutaneous pen injector (David) aripiprazole 10 mg tablet (Abilify) 10 mg PO HS 07/31/23 07/31/23 07/30/23 22:00 oxycodone 5 mg tablet 5 mg PO Q6H PRN pain #30 tabs 08/01/23 Unknown Active Medications Generic Name Dose Route Start Last Admin Trade Name Freq PRN Reason Stop Dose Admin Acetaminophen 1,000 mg 07/31/23 13:43 08/01/23 14:12 Acetaminophen 500 Mg Tab PO 08/30/23 13:42 1,000 mg Q8H PRN Administration MILD Pain Scale 1,2,3 & Pre PT Aripiprazole 10 mg 07/31/23 21:00 08/01/23 20:17 Aripiprazole 10 Mg Tab PO 08/30/23 20:59 10 mg HS MICHELINE Administration Aspirin 81 mg 08/01/23 09:00 08/02/23 09:17 Aspirin 81 Mg Ectab PO 08/31/23 08:59 81 mg QAM MICHELINE Administration Atorvastatin Calcium 80 mg 07/31/23 21:00 08/01/23 20:17 Atorvastatin 40 Mg Tab PO 08/30/23 20:59 80 mg QPM MICHELINE Administration Duloxetine HCl 60 mg 08/01/23 09:00 08/02/23 07:43 Duloxetine Hcl 60 Mg Cap PO 08/31/23 08:59 60 mg QAM MICHELINE Administration Hydromorphone HCl 1 mg 07/31/23 13:43 07/31/23 14:08 Hydromorphone Inj 1 Mg/Ml Syringe IV 08/14/23 13:42 1 mg Q3H PRN Administration SEVERE Pain (Scale 7,8,9,10) Dexamethasone 6 mg/ Syringe 1.5 mls @ 1 mls/min 08/01/23 09:00 08/02/23 07:43 IV 08/03/23 09:02 1 mls/min DAILY MICHELINE Administration Insulin Aspart 0 units 07/31/23 16:30 08/02/23 12:49 Insulin Aspart Per Unit Charge SC 08/30/23 16:29 7 units ACHS MICHELINE Administration Insulin Glargine 10 units 08/01/23 09:00 08/02/23 09:16 Lantus Per Unit Charge SC 08/03/23 12:00 10 units DAILY MICHELINE Administration Lactobacillus Acidophilus 625 mg 08/01/23 09:00 08/02/23 07:43 Advanced Probiotic 625 Mg Capsule PO 08/31/23 08:59 625 mg QAM MICHELINE Administration Magnesium Oxide 400 mg 08/01/23 09:00 08/02/23 07:43 Magnesium Oxide 400 Mg Tab PO 08/31/23 08:59 400 mg QAM MICHELINE Administration Metoprolol Succinate 25 mg 08/01/23 09:00 08/02/23 07:42 Metoprolol Succ 25mg Ext Rel Tab PO 08/31/23 08:59 25 mg QAM MICHELINE Administration Multivitamins 1 tab 07/31/23 21:00 08/01/23 20:18 Multivitamin Tab PO 08/30/23 20:59 1 tab QPM MICHELINE Administration Oxycodone HCl 5 - 10 mg 07/31/23 13:43 08/02/23 12:43 Oxycodone Hcl Ir 5 Mg Tab (Immediate Release) PO 08/14/23 13:42 10 mg Q4H PRN Administration Pain & Pre PT Pantoprazole Sodium 40 mg 08/01/23 09:00 08/02/23 07:42 Pantoprazole 40 Mg Tab PO 08/31/23 08:59 40 mg QAM MICHELINE Administration Polyethylene Glycol 17 gm 08/01/23 06:00 08/02/23 12:43 Polyethylene (Miralax) 17 Gm Pack PO 08/31/23 05:59 17 gm Q6 MICHELINE Administration Pregabalin 150 mg 08/01/23 09:00 08/02/23 07:42 Pregabalin 150 Mg Cap PO 08/31/23 08:59 150 mg QAM MICHELINE Administration Pregabalin 300 mg 07/31/23 21:00 08/01/23 20:22 Pregabalin 150 Mg Cap PO 08/30/23 20:59 300 mg HS MICHELINE Administration Sacubitril/Valsartan 1 tab 07/31/23 21:00 08/02/23 07:43 Valsartan/Sacubitril 51/49 Mg Tab PO 08/30/23 20:59 1 tab BID MICHELINE Administration Senna/Docusate Sodium 2 tab 07/31/23 21:00 08/01/23 20:18 Docusate Sodium/Senna 50/8.6mg Tab PO 08/30/23 20:59 2 tab HS MICHELINE Administration Trazodone HCl 100 mg 07/31/23 21:00 08/01/23 20:18 Trazodone Hcl 100 Mg Tab PO 08/30/23 20:59 100 mg HS MICHELINE Administration Vitamin D 125 mcg 07/31/23 21:00 08/02/23 07:43 Cholecalciferol 125 Mcg (5,000 Units) Tab PO 08/30/23 20:59 125 mcg BID MICHELINE Administration
[2023-08-03 07:31] LABS: Hematocrit (blood only) 38.4 % (42.0-52.0); Hemoglobin 12.2 g/dl (14.0-18.0); Mean Corpuscular Hemoglobin 27.6 pg (25.0-34.0); Mean Corpuscular Hgb Conc 31.8 g/dL (32.0-36.0); Mean Corpuscular Volume 86.9 fL (80.0-100.0); Mean Platelet Volume 9.7 fL (9.4-12.4); Platelet Count 174 K/uL (130-400); RDW Coefficient of Variation 15.1 % (11.5-14.5); RDW Standard Deviation 48.2 fL (36.4-46.3); Red Blood Count 4.42 M/uL (4.70-6.10)
--- NOTE | 2023-08-03 09:56 | Discharge Summary ---
Date of Service August 03, 2023 Admission HPI Per Admitting Provider This is a 67 M male presents with chronic persistent back and leg pain after failing since course of nonoperative care is here for surgical invention. Principal Diagnosis Lumbar spinal stenosis with neurogenic claudication Discharge Data Allergies Allergy/AdvReac Type Severity Reaction Status Date / Time epinephrine AdvReac Unknown Panic Verified 07/31/23 08:15 attack Consultations 07/31/23 13:43 Consult Hospitalist Routine Procedures Performed Operation Date: 07/31/23 09:25 Actual Procedures p L2-L4 Decompression, L2-S1 Fusion, Spinal Cord Monitoring(Not Applicable) - Yoel Maldonado DO s L4-S1 Hardware Removal, (Not Applicable) - Yoel Maldonado DO Ordered Studies 07/31/23 09:25 FL lumbar spine 2-3V Routine Hospital Course (1) Neurogenic claudication due to lumbar spinal stenosis: Patient underwent a lumbar decompression fusion tolerated as well as to the orthopedic floor postoperative. Postop day #1 he was up and ambulating well. He progressed throughout the rest of his hospital stay. TRAVIS drain decreased appropriately. Excellent strength testing. Subsidy discharged home. Discharge orders instructions found in chart for further review. Total Time Total Time Spent Total Time Spent (In Minutes): 20 minutes Discharge Plan Discharge Items Patient Disposition: Home - Self-Care Reason For Visit: Lumbar Disc Disease with Radiculopathy Discharge Diagnosis: Lumbar spinal stenosis with neurogenic claudication Activity: As commented below Non-emergency contact: Primary Care Provider Call non-emergency contact if: you have any medication questions Follow-up/Referrals: Barbra Garcia [Other] Diet: Regular Addtl Attending Provider Instructions: ACTIVITY RECOMMENDATIONS: SELF CARE INSTRUCTIONS AFTER THORACIC/LUMBAR FUSIONS 1. You may walk to your tolerance. It is good exercise for your legs and back. Expect some back and intermittent leg aches and pains. 2. You may perform "counter-top" level activities (make a sandwich, michelle with a project, etc.). 3. No bending or lifting of more than 10 pounds or back twisting of any nature (roll like a log when turning in bed). 4. You may ride in a car for 20-30 minutes at a time. No driving until after your first visit with your doctor. 5. Frequent changes of position and restricting sitting to 30 minutes at a time will help limit the amount of back spasms and stiffness you may experience. 6. You may discontinue the use of ambulatory aids (cane, crutches, etc.) once your strength and confidence allow. 7. You may bias cutting machine operator the shower and let water strike your incision when you arrive home at least once daily. Do not take a tub bath, sit in a hot tub or go into a swimming pool until after your first recheck in the office. SPECIAL CARE INSTRUCTIONS: VERY IMPORTANT TO READ AND REVIEW A. Your surgical incision has been closed with a cosmetic suture under the skin that will dissolve in about 6 weeks. In 14 days, you can use a pair of clean scissors and cut the suture that is left outside of the skin at the ends of your incision. 1. The small skin tapes can be removed 7 days after surgery if they have not fallen off by that point. 2. You may keep the wound open to air as much as possible to promote healing after post-op day number 5 unless told otherwise by your doctor. 3. If you think the wound looks like it is becoming infected (redness or worsening drainage) and/or you are experiencing fever, chill or worsening back pain and muscle spasms, contact the office so that we may evaluate you as soon as possible. B. Complications are uncommon, but please contact us if you have any signs or symptoms of: 1. wound infection (fever higher than 102.5 degrees F, redness, separation of wound, drainage, or increasing pain from the incision) 2. blood clots in legs (pain, swelling, redness and warmth in legs) 3. urinary tract infection (fever higher than 102.5 degrees F, burning upon urination or increased frequency of urination) 4. nerve problems (inability to walk on your toes or heels, numbness, loss of bowel or bladder control) 5. any other symptoms that concern you C. Please call the office at if you have any concerns or questions about your operation or recovery. D. No smoking! Smoking drastically decreases the chance of a solid fusion. E. Do not take any anti-inflammatory medications (Indocin, Advil, Motrin, Aspirin, Naprosyn, etc.) as these may inhibit the chance of a solid fusion. Tylenol is okay to take for pain. MANAGING PAIN AFTER SPINAL SURGERY 1. Narcotic medication is intended for short-term use and will be provided for surgical pain. Surgical pain usually lasts for a period of 4-6 weeks. Narcotic medication includes Percocet, Vicodin, Darvocet, Tylenol #3 or Lortab. 2. Longer-term pain is more appropriately treated with non-narcotic medication such as Tylenol ES. 3. Muscle spasm is not appropriately treated with narcotics. Muscle relaxers such as Soma, Flexeril or Skelaxin can be used along with Tylenol ES. 4. Remember that we all live with some "aches and pains". This is not unusual or uncommon after an injury or as we get older. a. Back pain is expected and may include muscle spasms for 4 to 6 weeks after surgery. The pain should gradually improve. If the pain worsens for no apparent reason, please contact the office. b. Intermittent leg pain may also be experienced and should not be concerned about unless it worsens for no apparent reason. If so, please contact the office. 5. We will provide appropriate medication within the normal guidelines of their prescribed use. We will also be very cautious and aware of potential abuse and extended duration of patients' medication needs. a. Pain medications are for your comfort and to assist with sleep and rest so that the tissue can heal. They are not provided in order to return to normal activity and should not be used through the day. To do so or worsening pain at night can result from ongoing tissue damage and development of tolerance to the prescribed medicine. 6. Please allow 2-3 days to process refills. Prescriptions will not be mailed but must be picked up at the office. FOLLOW UP VISIT: Keep your scheduled follow-up appointment. Any questions, please call the office at . Pending Studies at Discharge: No Stand-Alone Forms: [facility], Smoking Cessation Medications and DC Order Prescriptions: New oxycodone 5 mg tablet 5 mg PO Q6H PRN (Reason: pain) Qty: 30 0RF Continued atorvastatin 80 mg Tablet 80 mg PO QPM clopidogrel 75 mg Tablet 75 mg PO QAM aspirin 81 mg Tablet,Delayed Release (Dr/Ec) 81 mg PO QAM trazodone 100 mg Tablet 100 mg PO HS omeprazole 20 mg Capsule,Delayed Release(Dr/Ec) 20 mg PO QAM metoprolol succinate 25 mg Tablet Extended Release 24 Hr 25 mg PO QAM multivitamin Capsule 1 cap PO QPM duloxetine [Cymbalta] 60 mg Capsule,Delayed Release(Dr/Ec) 60 mg PO QAM pregabalin [Lyrica] 150 mg Capsule 150 mg PO QAM pregabalin [Lyrica] 150 mg Capsule 300 mg PO HS cholecalciferol (vitamin D3) [Vitamin D3] 125 mcg (5,000 unit) Tablet 125 mcg PO BID Probiotic 3 billion cell Capsule 3,000 mmu cells PO QAM Rx Instructions: administer with a meal dapagliflozin propanediol [Farxiga] 10 mg Tablet 10 mg PO QAM Entresto 49-51 mg Tablet 1 tab PO BID oxycodone-acetaminophen 10-325 mg Tablet 1 tab PO UD PRN (Reason: Pain) Mounjaro 10 mg/0.5 mL Pen Injector 10 mg SUBCUT WK Patient Comments: fridays magnesium oxide 400 mg (241.3 mg magnesium) Tablet 400 mg PO QAM aripiprazole [Abilify] 10 mg Tablet 10 mg PO HS Discharge Orders: Discharge Order (Routine); Ordered 08/03/23 Ordered By: Yoel Maldonado Admission Data Admit Date/Time: 07/31/23 12:09 Attending Provider: Yoel Maldonado Admit Provider: Yoel Maldonado Primary Care Provider: Barbra Garcia Other Providers: Marilu Briggs; Dc Ellis
--- NOTE | 2023-08-03 12:52 | Hospitalist Progress Note ---
Date of Service August 03, 2023 Assessment & Plan (1) Neurogenic claudication due to lumbar spinal stenosis: (2) CAD (coronary artery disease): (3) History of CHF (congestive heart failure): (4) Sleep apnea: (5) Diabetes: (6) Acute blood loss anemia: Plan This is a 67-year-old male who has a significant past medical history of CAD with hx of CABG and stents, CHF, LEONEL, T2DM, HTN, HLD and depression who is s/p lumbar hardware removal and decompression 07/30 Lumbar spinal stenosis with neurogenic claudication Status post lumbar hardware removal, L2-L4 decompression and L2-S1 fusion by Dr. Mladonado, POD #2 Tolerated the procedure well, preop hemoglobin 16 Pain/wound management per orthopedic Activity and therapy as prescribed orthopedics Encourage incentive spirometry Acute blood loss anemia 2/2 expected surgical blood loss and dilution pre op hgb 16 pod #1 hgb 11.8 -Will repeat CBC in am Leukocytosis likely reactive from surgery cbc in am, no signs of infection CAD with history of two-vessel CABG in 2019 and a prior history of stents HTN HLD Chronic HFpEF History of cardiomyopathy, ischemic He follows [facility] in [place], [place] Last echocardiogram May 2023 which revealed preserved ejection fraction As an outpatient currently on aspirin, statin, Plavix, Farxiga, Entresto and metoprolol Continue plavix Resume home regimen T2DM Last A1c 6.0 On Mounjaro and Farxiga Lantus/NovoLog per protocol LEONEL Cpap at HS Depression Abilify, trazodone, duloxetine mood stable DVT prophylaxis: Per primary FULL CODE PCP: Reji Rider PA Dispo: per primary Thank you for this consultation. We will follow the patient with you during their hospital stay. You can reach a member of the [facility] Hospitalist Team 02/10 via hospitalist role on tiger text. Admission and Anticipated Discharge Date Admission Date: July 31, 2023 Subjective NAEO reports feeling well and right leg symptoms resolved Patient eager for dispo Physical Exam Constitutional: WD/WN, vitals as above Respiratory: normal respiratory effort, lungs clear to auscultation Cardiovascular: RRR, no murmur, no edema Gastrointestinal (Abdomen): normal bowel sounds, soft, nontender, no hepatosplenomegaly Results & Data Results & Data Vital Signs (Past 12 Hours) Vital Signs Temp Pulse Pulse Resp BP Pulse Ox O2 Del Method 08/03/23 10:29 36.7 C 74 67 16 118/73 96 08/03/23 06:56 36.7 C 67 16 118/73 96 Room Air Laboratory Results Short CBC 08/03/23 Range/Units 07:06 WBC 11.00 H (4.8-10.8) K/ul Hgb 12.2 L (14.0-18.0) g/dl Hct 38.4 L (42.0-52.0) % Plt Count 174 (130-400) K/uL Medications Administered Home Medications Medication Instructions Recorded Confirmed Last Taken aspirin 81 mg tablet,delayed 81 mg PO QAM 04/03/22 07/31/23 07/25/23 release atorvastatin 80 mg tablet 80 mg PO QPM 04/03/22 07/31/23 07/30/23 19:00 cholecalciferol (vitamin D3) 125 125 mcg PO BID 04/03/22 07/31/23 07/29/23 mcg (5,000 unit) tablet (Vitamin D3) clopidogrel 75 mg tablet 75 mg PO QAM 04/03/22 07/31/23 07/25/23 dapagliflozin propanediol 10 mg 10 mg PO QAM 04/03/22 07/31/23 07/25/23 tablet (Farxiga) duloxetine 60 mg capsule,delayed 60 mg PO QAM 04/03/22 07/31/23 07/31/23 05:30 release (Cymbalta) lactobacillus combination no.4 3 3,000 mmu cells PO QAM 04/03/22 07/31/23 07/27/23 billion cell capsule (Probiotic) metoprolol succinate 25 mg 25 mg PO QAM 04/03/22 07/31/23 07/31/23 05:30 tablet,extended release 24 hr multivitamin 1 cap PO QPM 04/03/22 07/31/23 07/30/23 19:00 omeprazole 20 mg capsule,delayed 20 mg PO QAM 04/03/22 07/31/23 07/31/23 05:30 release oxycodone-acetaminophen 10 mg-325 1 tab PO UD PRN Pain 04/03/22 07/31/23 07/30/23 13:00 mg tablet pregabalin 150 mg capsule (Lyrica) 150 mg PO QAM 04/03/22 07/31/23 07/31/23 05:30 pregabalin 150 mg capsule (Lyrica) 300 mg PO HS 04/03/22 07/31/23 07/30/23 19:00 sacubitril 49 mg-valsartan 51 mg 1 tab PO BID 04/03/22 07/31/23 07/29/23 tablet (Entresto) trazodone 100 mg tablet 100 mg PO HS 04/03/22 07/31/23 07/30/23 22:00 magnesium oxide 400 mg (241.3 mg 400 mg PO QAM 07/04/23 07/31/23 07/29/23 magnesium) tablet tirzepatide 10 mg/0.5 mL 10 mg subcut WK 07/04/23 07/31/23 07/20/23 subcutaneous pen injector (David) aripiprazole 10 mg tablet (Abilify) 10 mg PO HS 07/31/23 07/31/23 07/30/23 22:00 oxycodone 5 mg tablet 5 mg PO Q6H PRN pain #30 tabs 08/01/23 Unknown
== END 2023-08-03 12:30 | disposition home or self-care (01) | DRG 454 ==
LOC: ASU 07:38 → 3N 12:09